=== PATIENT | male | born 1935 | race Caucasian/White ===

== ENCOUNTER → 2016-11-12 | Outpatient (CLI) | payer MEDICARE, BC ==
[~2016-11-12] MED LIST: DOBUTamine DRIP for NUC MED 500 MG in DEXTROSE/WATER 1 250ML.BAG IV ONE
--- NOTE | 2016-11-12 11:37 | ECHOS ---
Referral Reason:R07.9 chest pain R68.84 jaw pain MEASUREMENTS -------- HEIGHT: 175.3 cm WEIGHT: 104.3 kg BP: 141/62 FINDINGS -------- The patient received intravenous dobutamine beginning at 10 mcg/kg/min, increasing to 20 mcg/kg/min and 30 mcg/kg/min in 3 minute stages plus 0 mg atropine. Max Heart Rate: 119 % of Max Predicted Heart Rate: 85 Rest Heart Rate: 59 Rest BP: 141/62 Max BP: 216/58 Mets Achieved: N/A The test was stopped because the target heart rate was achieved. Sinus rhythm. In response to stress, the ECG showed no diagnostic ST-T wave changes (see exercise report for details). LV size, wall thickness and systolic function are normal, with an EF of 60%. At recovery dobutamine stress there was appropriate augmentation of systolic function of all segments with decrease in cavity size. CONCLUSIONS -------- 1. Sinus rhythm. 2. In response to stress, the ECG showed no diagnostic ST-T wave changes (see exercise report for details). 3. LV size, wall thickness and systolic function are normal, with an EF of 60%. 4. At recovery dobutamine stress there was appropriate augmentation of systolic function of all segments with decrease in cavity size. 5. No 2D echocardiographic evidence of inducible ischemia to achieved workload. ASSISTANT STORE MANAGER TRAINEE: Marcus Sanon RDCS
== END | disposition home or self-care (01) ==
LOC: RADNMMAIN 08:54
PROVIDERS: ATTEND Family Medicine
DX: R07.9 Chest pain, unspecified (principal); R68.84 Jaw pain; Z88.5 Allergy status to narcotic agent
CPT/HCPCS: 93017; 93350

== ENCOUNTER → 2018-06-24 | Outpatient (CLI) | payer MEDICARE, BC ==
--- NOTE | 2018-06-24 12:41 | CT ---
EXAMINATION TYPE: CT ankle RT wo con DATE OF EXAM: 06/24/2018 COMPARISON: None HISTORY: Right ankle pain. CT DLP: 249 mGycm Automated exposure control for dose reduction was used. TECHNIQUE: Contiguous axial CT slices were obtained of the right ankle without contrast. Three-D refo rmatted images were also provided performed at a separate workstation. FINDINGS: There is a surgical fixation plate along the fibula with heterotopic ossification through the syndesm osis bridging the distal tibia or fibula. Multiple well-corticated osseous fragments are seen distal to the medial malleolus sequela of prior injury. The alignment of the right ankle is maintained. Ther e is slight sclerosis of the talar dome and distal tibia. No acute fracture is seen. Degenerative oss eous perforation is seen of the talotibial joint and dorsal midfoot. Extensive atherosclerosis is pre sent of the vasculature of the right foot. Small Achilles and plantar heel spurs are present. Evaluat ion of the tendons and ligaments are limited on CT. IMPRESSION: 1. NO EVIDENCE OF ACUTE FRACTURE OR HARDWARE FRACTURE OF THE RIGHT FOOT. 2. OSSEOUS SYNOSTOSIS OF THE DISTAL TIBIA AND FIBULA FROM HETEROTOPIC OSSIFICATION THROUGH THE SYNDES MOSIS. 3. WELL-CORTICATED SMALL FRACTURE FRAGMENTS INFERIOR TO THE MEDIAL MALLEOLUS OSSICLE OR PRIOR TRAUMA AND SUGGEST DELTOID LIGAMENT INJURY. 4. MODERATE HINDFOOT AND MIDFOOT ARTHROPATHY, SMALL HEEL SPURS, AND EXTENSIVE PERIPHERAL ARTERIAL ATH EROSCLEROSIS.
== END ==
LOC: RADCTMAIN 11:36
PROVIDERS: ATTEND Orthopaedic Surgery
DX: Q78.8 Other specified osteochondrodysplasias (principal); M12.871 Other specific arthropathies, not elsewhere classified, right ankle and foot; M77.31 Calcaneal spur, right foot

== ENCOUNTER 2018-09-13 16:48 | Inpatient (IN) | payer MEDICARE, BC ==
[2018-09-13] MEDS ORDERED: SODIUM CHLORIDE 0.9% 500 ML 500 ML IV STA (18:25)
[2018-09-13 18:47] LABS: Anisocytosis Slight; Basophils % (A) 0 %; Eosinophils # (A) 0.1 k/uL (0-0.7); Eosinophils % (A) 2 %; HCT 32.3 % (39.0-53.0); HGB 10.4 gm/dL (13.0-17.5); Lymphocytes # (A) 0.7 k/uL (1.0-4.8); Lymphocytes % (A) 22 %; MCH 27.4 pg (25.0-35.0); MCHC 32.2 g/dL (31.0-37.0); MCV 85.2 fL (80.0-100.0); Mean Platelet Volume 8.2; Monocytes # (A) 0.3 k/uL (0-1.0); Monocytes % (A) 9 %; Neutrophils # (A) 1.9 k/uL (1.3-7.7); Neutrophils % (A) 64 %; Platelet Count 129 k/uL (150-450); RBC 3.79 m/uL (4.30-5.90); RDW 16.4 % (11.5-15.5)
[2018-09-13 18:49] LABS: Appearance,Urine Clear (Clear); Bilirubin,Urine Negative (Negative); Blood,Urine Negative (Negative); Color,Urine Yellow; Glucose,Urine (UA) Negative (Negative); Ketones,Urine Negative (Negative); Leukocyte Esterase,Urine Trace (Negative); Mucus,Urine Rare /hpf; Nitrite,Urine Negative (Negative); Protein,Urine 1+ (Negative); RBC,Urine 1 /hpf (0-5); Specific Gravity,Urine 1.025 (1.001-1.035); Squamous Epithelial Cell,Urine 1 /hpf (0-4); WBC,Urine 4 /hpf (0-5)
--- NOTE | 2018-09-13 18:49 | ED ---
Chest Pain HPI - General Chief Complaint: Chest Pain Stated Complaint: Shortness of Breath Time Seen by Provider: 09/13/18 18:00 Source: patient, family Mode of arrival: wheelchair Limitations: no limitations - History of Present Illness Initial Comments: 83-year-old male patient with past medical history significant for coronary artery disease, hypertension, diabetes mellitus presents to the emergency department today for evaluation of shortness of breath and near-syncope. The patient states that he has been increasingly short of breath over the last several weeks worsening today. Patient states that he did have an episode today where he felt extremely fatigued and nearly passed out. Patient denies any dizziness with this. Patient states he did have some mild discomfort to his chest but denies any pain". Patient denies any nausea or vomiting. Denies any abdominal pain. He does report an increase in indigestion type symptoms over the last couple of weeks as well. Patient did return from a trip to [place] on Wednesday. He did fly there and back. Denies any calf pain, tenderness, or swelling. Patient denies any recent rash, fever, chills, diarrhea, constipation, back pain, numbness, tingling, hematuria, dysuria, urinary urgency, urinary frequency, headache, visual changes, or any other complaints. - Related Data Home Medications Medication Instructions Recorded Confirmed Doxazosin [Cardura] 1 mg PO DAILY 07/27/15 09/13/18 Lovastatin 40 mg PO HS 07/27/15 09/13/18 traZODone HCL [traZODone] 300 mg PO HS PRN 07/27/15 09/13/18 Carvedilol [Coreg] 6.25 mg PO BID 09/13/18 09/13/18 Furosemide [Lasix] 20 mg PO DAILY 09/13/18 09/13/18 Gabapentin [Neurontin] 400 mg PO QID PRN 09/13/18 09/13/18 Glimepiride [Amaryl] 4 mg PO BID 09/13/18 09/13/18 Hydrocodone/Acetaminophen [[place] 1 tab PO Q4HR PRN 09/13/18 09/13/18 5-325] amLODIPine BESYLATE [Norvasc] 5 mg PO DAILY 09/13/18 09/13/18 Allergies Allergy/AdvReac Type Severity Reaction Status Date / Time meperidine HCl [From Demerol] Allergy Hallucinati Verified 09/13/18 18:35 ons Review of Systems ROS Statement: Those systems with pertinent positive or pertinent negative responses have been documented in the HPI. ROS Other: All systems not noted in ROS Statement are negative. EKG Findings - EKG Comments: EKG Findings:: EKG obtained at 1741 shows sinus bradycardia with a first-degree AV block. Ventricular rate is 59, NC interval 268, QRS duration 94, QTC 446, QTc 441. No evidence of ST elevation or depression. Past Medical History Past Medical History: Coronary Artery Disease (CAD), Chest Pain / Angina, Hypertension History of Any Multi-Drug Resistant Organisms: None Reported Past Surgical History: Back Surgery, Heart Catheterization With Stent Past Psychological History: No Psychological Hx Reported Smoking Status: Former smoker Past Alcohol Use History: None Reported Past Drug Use History: None Reported General Exam Limitations: no limitations General appearance: alert, in no apparent distress, other (This is a well- developed, well-nourished elderly male patient in no acute distress. Vital signs upon presentation are temperature 98.2F, pulse 87, respirations 20, blood pressure 144/66, pulse ox 98% on room air.) Eye exam: Present: normal appearance, PERRL, EOMI. Absent: scleral icterus, conjunctival injection, periorbital swelling ENT exam: Present: normal exam, normal oropharynx, mucous membranes moist Respiratory exam: Present: normal lung sounds bilaterally. Absent: respiratory distress, wheezes, rales, rhonchi, stridor Cardiovascular Exam: Present: regular rate, normal rhythm, normal heart sounds. Absent: systolic murmur, diastolic murmur, rubs, gallop, clicks GI/Abdominal exam: Present: soft, normal bowel sounds. Absent: distended, tenderness, guarding, rebound, rigid Neurological exam: Present: alert, oriented X3, CN II-XII intact Psychiatric exam: Present: normal affect, normal mood Skin exam: Present: warm, dry, intact, normal color. Absent: rash Course Vital Signs 09/13/18 09/13/18 09/13/18 17:31 18:30 19:00 Temperature 98.2 F Pulse Rate 87 57 L 60 Respiratory 20 18 18 Rate Blood Pressure 144/66 144/71 156/72 O2 Sat by Pulse 98 98 95 Oximetry 09/13/18 09/13/18 09/13/18 19:30 20:00 20:30 Temperature Pulse Rate 53 L 54 L 57 L Respiratory Rate Blood Pressure 143/68 145/74 154/73 O2 Sat by Pulse 97 98 Oximetry Chest Pain MDM - MDM RADIOLOGY:Two-view x-ray of the chest is obtained. Report was reviewed in its entirety. Impression by Dr. Paluo Meyers shows no acute process CT angiography of the chest was obtained. Report reviewed in its entirety. Impression by Dr. Paulo Meyers shows negative for pulmonary embolism or other acute thoracic process. Prominent left and right coronary arterial calcifications with mild cardiomegaly and parent chamber enlargement. Paraesophageal adenopathy pattern. Visualized subdiaphragmatic structures show findings suspicious for infiltrating liver neoplasm. Hepatomegaly. MDM: 83-year-old male patient presented to the emergency department today for evaluation of shortness of breath and near-syncope today. Physical examination reveals clear equal lung sounds. Abdomen soft and nontender. Vital signs are within normal ranges. Labs reviewed and did reveal elevated d-dimer 1.4. The patient did undergo CT angiography of the chest which showed no acute intrathoracic process however did show suspicious liver lesion. I did discuss all results and findings with the patient. He is instructed to follow-up with his primary care physician for further evaluation of this abnormal liver finding. He does have history of coronary artery disease, did recommend admission overnight for serial troponin and further evaluation by cardiology in the morning. He verbalizes understanding and agrees with this plan. Disposition Clinical Impression: Dyspnea, Near syncope Disposition: ADMITTED IP TO THIS [facility] Condition: Serious Decision to Admit Reason: Admit from EC Decision Date: 09/13/18 Decision Time: 22:13
[2018-09-13 19:02] LABS: Partial Thromboplastin Time 27.4 sec (22.0-30.0); Prothrombin Time 10.4 sec (9.0-12.0)
[2018-09-13 19:04] LABS: D-Dimer 1.41 mg/L FEU (<0.60)
[2018-09-13 19:11] LABS: Albumin 3.4 g/dL (3.5-5.0); Calcium 8.6 mg/dL (8.4-10.2); Potassium 4.5 mmol/L (3.5-5.1); Total Bilirubin 0.6 mg/dL (0.2-1.3); Total Protein 6.5 g/dL (6.3-8.2)
--- NOTE | 2018-09-13 20:14 | XR ---
EXAMINATION: XR chest 2V DATE AND TIME: 09/13/2018 6:57 PM CLINICAL INDICATION: PHH; Chest Pain TECHNIQUE: Departmental protocol COMPARISON: 07/27/2015 FINDINGS: The cardiac apex at opacity is redemonstrated. Visualized lungs otherwise appear to be clear and well expanded bilaterally. The pleural spaces are negative. The cardiac silhouette is mildly enlarged. The remainder of the mediastinal silhouette is unremarkabl e. The skeletal structures and soft tissues are negative for acute findings. IMPRESSION: NO ACUTE PROCESS.
--- NOTE | 2018-09-13 21:05 | CT ---
EXAMINATION TYPE: CT chest angio for PE with contrast and with 3-D reconstruction renderings DATE OF EXAM: 09/13/2018 COMPARISON: Abdominal CT images 06/06/2013 HISTORY: Shortness of breath. CT DLP: 597.6 mGycm Automated exposure control for dose reduction was used. CONTRAST: CT Chest for pulmonary embolism performed with with IV Contrast, patient injected with 93ml mL of Isovue 370. Three-D reconstructions FINDINGS: LUNGS, PLEURAL SPACES, AIRWAYS: The lungs are grossly clear, there is no concerning parenchymal mass or nodule identified. There is no pleural effusion or pneumothorax seen. The tracheobronchial tree is patent. MEDIASTINUM: There is satisfactory enhancement of the pulmonary artery and its branches, there is no CT evidence for pulmonary embolism. No acute aortic findings. There are prominent left and right heike nary calcifications with mild cardiomegaly and panchamber enlargement. No pericardial effusion. There are multifocal 1 cm short axis soft tissue paraesophageal located just right of the thoracic es ophagus in the subcarinal position. These are suspicious for adenopathy; no paraesophageal varices ar e also present. OTHER: There is a zone of ill-defined low attenuation throughout the posterior segment of the right hepatic lobe, both above and below the level of the jose hepatis. This measures 10 x 8 cm in axial c ross section and reaches a posterior subcapsular position. The finding was not seen at the time of th e noncontrast CT of 2013. Further characterization with alpha-fetoprotein level and also MRI Liver pr otocol is recommended. Mild caudate lobe prominence is noted. There is mild hepatomegaly with abdomin al varices noted. There is mild splenomegaly, without focal defects. IMPRESSION: CHEST: Negative for pulmonary embolism or other acute thoracic process. Prominent left and right coronary arterial calcifications with mild cardiomegaly and panchamber enlar gement. Paraesophageal adenopathy pattern. VISUALIZED SUBDIAPHRAGMATIC STRUCTURES: Findings suspicious for infiltrating liver neoplasm. Hepatosplenomegaly.
[2018-09-13] MEDS ORDERED: NALOXONE 0.4 MG/ML 1 ML VIAL IV PRN (22:10)
[2018-09-13] MEDS ORDERED: ONDANSETRON 4 MG/2 ML VIAL IVP PRN (22:10)
[2018-09-13] MEDS ORDERED: GABAPENTIN 400 MG CAP PO PRN (22:11)
[2018-09-13] MEDS ORDERED: traZODone HCL 100 MG TAB PO PRN (22:11)
[2018-09-13] MEDS ORDERED: HYDROcodone/APAP 5-325MG 1 EACH TAB PO PRN (22:11)
[2018-09-14 06:46] LABS: Glucose,Whole Blood 114 mg/dL (75-99)
--- NOTE | 2018-09-14 08:17 | P.CRDCN ---
History of Present Illness Consult date: 09/14/18 Chief complaint: Shortness of breath History of present illness: This is a pleasant 83-year-old gentleman with past medical history significant f or CAD and prior stenting with unknown details at this point, borderline diabetes, hypertension, and dyslipidemia, presented to the hospital complaining of increasing shortness of breath as well as near syncope. The patient stated that the shortness of breath started about 3 weeks ago. He describes only exertional dyspnea but even with minimal exertion. No orthopnea or PND. No lower extremities edema. No change in the weight. No symptoms of chest pain or chest discomfort. No dizziness or lightheadedness and no syncope. The cardiac enzymes were checked and came in to be unremarkable. The EKG showed sinus rhythm only. The d-dimer was abnormal and subsequently the CTA of the chest did not show any acute abnormalities like PE or acute thoracic process. There was possible newplasm in the liver was identified on the computed tomography scan. The rest of the blood work came in to be unremarkable. The patient stated that he follows with Dr. Pearl in the office on regular basis but he did not have any stress test within the last 6 months to a year. Past Medical History Past Medical History: Coronary Artery Disease (CAD), Chest Pain / Angina, Hypertension History of Any Multi-Drug Resistant Organisms: None Reported Past Surgical History: Back Surgery, Heart Catheterization With Stent Additional Past Surgical History / Comment(s): surgery for broken nose Past Anesthesia/Blood Transfusion Reactions: No Reported Reaction Date of Last Stent Placement:: 2008 Smoking Status: Former smoker - Past Family History Mother Family Medical History: Diabetes Mellitus Father Family Medical History: Myocardial Infarction ([place]) Brother(s) Family Medical History: Myocardial Infarction ([place]) Sister(s) Family Medical History: No Reported History Son(s) Family Medical History: No Reported History Daughter(s) Additional Family Medical History / Comment(s): open heart sugery as a toddler Medications and Allergies Home Medications Medication Instructions Recorded Confirmed Type Doxazosin [Cardura] 1 mg PO DAILY 07/27/15 09/14/18 History Lovastatin 40 mg PO HS 07/27/15 09/14/18 History traZODone HCL [traZODone] 300 mg PO HS PRN 07/27/15 09/14/18 History Carvedilol [Coreg] 6.25 mg PO BID 09/13/18 09/14/18 History Furosemide [Lasix] 20 mg PO DAILY 09/13/18 09/14/18 History Gabapentin [Neurontin] 400 mg PO QID PRN 09/13/18 09/14/18 History Glimepiride [Amaryl] 4 mg PO BID 09/13/18 09/14/18 History Hydrocodone/Acetaminophen [[place] 1 tab PO Q4HR PRN 09/13/18 09/14/18 History 5-325] amLODIPine BESYLATE [Norvasc] 5 mg PO DAILY 09/13/18 09/14/18 History Allergies Allergy/AdvReac Type Severity Reaction Status Date / Time meperidine HCl [From Demerol] Allergy Hallucinati Verified 09/14/18 00:57 ons Physical Exam Vitals: Vital Signs Temp Pulse Pulse Pulse Resp BP BP 09/14/18 07:25 97.5 F L 80 18 189/77 09/14/18 04:00 97.7 F 65 15 151/64 09/14/18 00:00 97.9 F 69 15 146/78 09/13/18 23:19 97 F L 62 18 136/63 09/13/18 23:00 133/63 09/13/18 22:30 60 144/66 09/13/18 22:00 59 L 184/89 09/13/18 21:30 157/84 09/13/18 21:00 157/71 09/13/18 20:30 57 L 154/73 09/13/18 20:00 54 L 145/74 09/13/18 19:30 53 L 143/68 09/13/18 19:00 60 18 156/72 09/13/18 18:30 57 L 18 144/71 09/13/18 17:31 98.2 F 87 20 144/66 Pulse Ox 09/14/18 07:25 97 09/14/18 04:00 97 09/14/18 00:00 97 09/13/18 23:19 97 09/13/18 23:00 96 09/13/18 22:30 96 09/13/18 22:00 98 09/13/18 21:30 09/13/18 21:00 97 09/13/18 20:30 98 09/13/18 20:00 97 09/13/18 19:30 09/13/18 19:00 95 09/13/18 18:30 98 09/13/18 17:31 98 Intake and Output 09/13/18 09/14/18 09/14/18 22:59 06:59 14:59 Other: Voiding Method Toilet # Voids 2 Weight 111.13 kg - Constitutional General appearance: no acute distress - Respiratory Respiratory: bilateral: CTA - Cardiovascular Rhythm: regular Heart sounds: normal: S1, S2 Abnormal Heart Sounds: systolic murmur Results 09/13/18 18:05 09/13/18 18:05 Cardiac Enzymes 09/13/18 09/13/18 09/13/18 Range/Units 18:05 18:05 23:42 AST 61 H (17-59) U/L Troponin I <0.012 <0.012 (0.000-0.034) ng/mL 09/14/18 Range/Units 06:00 AST (17-59) U/L Troponin I <0.012 (0.000-0.034) ng/mL Coagulation 09/13/18 Range/Units 18:05 PT 10.4 (9.0-12.0) sec APTT 27.4 (22.0-30.0) sec CBC 09/13/18 Range/Units 18:05 WBC 3.0 L (3.8-10.6) k/uL RBC 3.79 L (4.30-5.90) m/uL Hgb 10.4 L (13.0-17.5) gm/dL Hct 32.3 L (39.0-53.0) % Plt Count 129 L (150-450) k/uL Comprehensive Metabolic Panel 09/13/18 Range/Units 18:05 Sodium 138 (137-145) mmol/L Potassium 4.5 (3.5-5.1) mmol/L Chloride 107 (98-107) mmol/L Carbon Dioxide 25 (22-30) mmol/L BUN 19 (9-20) mg/dL Creatinine 0.98 (0.66-1.25) mg/dL Glucose 131 H (74-99) mg/dL Calcium 8.6 (8.4-10.2) mg/dL AST 61 H (17-59) U/L ALT 36 (21-72) U/L Alkaline Phosphatase 182 H (38-126) U/L Total Protein 6.5 (6.3-8.2) g/dL Albumin 3.4 L (3.5-5.0) g/dL Current Medications Generic Name Dose Route Start Last Admin Trade Name Freq PRN Reason Stop Dose Admin Hydrocodone Bitart/Acetaminophen 1 each 09/13/18 22:11 [place] 5-325 PO Q4HR PRN Pain Amlodipine Besylate 5 mg 09/14/18 09:00 Norvasc PO DAILY [facility] Atorvastatin Calcium 10 mg 09/14/18 21:00 Lipitor PO HS [facility] Carvedilol 6.25 mg 09/14/18 07:30 Coreg PO AC-BID [facility] Doxazosin Mesylate 1 mg 09/14/18 09:00 Cardura PO DAILY [facility] Furosemide 20 mg 09/14/18 09:00 Lasix PO DAILY [facility] Gabapentin 400 mg 09/13/18 22:11 Neurontin PO QID PRN Pain Glimepiride 4 mg 09/14/18 09:00 Amaryl PO BID [facility] Naloxone HCl 0.2 mg 09/13/18 22:10 Narcan IV Q2M PRN Opioid Reversal Ondansetron HCl 4 mg 09/13/18 22:10 Zofran IVP Q8HR PRN Nausea And Vomiting Trazodone HCl 300 mg 09/13/18 22:11 Desyrel PO HS PRN Insomnia Intake and Output 09/13/18 09/14/18 09/14/18 22:59 06:59 14:59 Other: Voiding Method Toilet # Voids 2 Weight 111.13 kg 09/13/18 18:05 09/13/18 18:05 Assessment and Plan Assessment: Assessment #1 shortness of breath, only exertional dyspnea #2 near syncope #3 CAD with prior stenting with unknown details #4 multiple comorbidities including diabetes, hypertension, dyslipidemia Plan #1 acute coronary event was ruled out. The serial enzymes came in to be unrem arkable. #2 PE was ruled out as well. The computed tomography scan of the chest did not show any evidence of PE #3 I am obtaining an echocardiogram was Doppler to assess the LV function and for any valvular abnormalities #3 I would advise further investigating the liver abnormalities finding on the computed tomography scan #4 further recommendation to follow that, possibly obtaining a stress test Thank you for allowing us participate in his care.
[2018-09-14] MEDS: FUROSEMIDE 20 MG TAB PO SCH (11:16)
[2018-09-14] MEDS: DOXAZOSIN 1 MG TAB PO SCH (11:16)
[2018-09-14] MEDS: CARVEDILOL 6.25 MG TAB PO SCH ×2 (11:16→17:34)
[2018-09-14] MEDS: amLODIPine 5 MG TAB PO SCH (11:16)
[2018-09-14] MEDS: GLIMEPIRIDE 4 MG TAB PO SCH ×2 (11:16→20:22)
[2018-09-14 11:57] LABS: Glucose,Whole Blood 131 mg/dL (75-99)
[2018-09-14 13:06] LABS: Blood Urea Nitrogen 15 mg/dL (9-20)
[2018-09-14] MEDS: IOPAMIDOL-300 CONTRAST 30 ML VIAL (ORAL USE) PO PRN ×2 (14:41→15:33)
--- NOTE | 2018-09-14 14:45 | ECHOF ---
Referral Reason:CP MEASUREMENTS -------- HEIGHT: 175.3 cm WEIGHT: 111.1 kg BP: 189/77 RVIDd: 3.5 cm (< 3.3) IVSd: 1.2 cm (0.6 - 1.1) LVIDd: 3.8 cm (3.9 - 5.3) LVPWd: 1.2 cm (0.6 - 1.1) IVSs: 1.5 cm LVIDs: 1.7 cm LVPWs: 1.5 cm Ao Diam: 2.8 cm (2.0 - 3.7) AV Cusp: 2.2 cm (1.5 - 2.6) LA Diam: 3.8 cm (2.7 - 3.8) MV EXCURSION: 17.701 mm (> 18.000) MV EF SLOPE: 148 mm/s (70 - 150) EPSS: 0.7 cm MV E Giovanni: 1.23 m/s MV DecT: 210 ms MV A Giovanni: 0.85 m/s MV E/A Ratio: 1.45 RAP: 5.00 mmHg RVSP: 33.76 mmHg FINDINGS -------- Sinus rhythm. This was a technically good study. The left ventricular size is normal. There is mild concentric left ventricular hypertrophy. Overa ll left ventricular systolic function is normal with, an EF between 55 - 60 %. The right ventricle is mildly enlarged. The left atrial size is normal. The right atrial size is normal. Interatrial and interventricular septum intact. Aortic valve is trileaflet and is mildly thickened. Mild mitral annular calcification present. Mild mitral regurgitation is present. Trace tricuspid regurgitation present. The right ventricular systolic pressure, as measured by Dopp ler, is 33.76mmHg. There is no pulmonic regurgitation present. The aortic root size is normal. IVC Not well visulized. There is no pericardial effusion. CONCLUSIONS -------- 1. Sinus rhythm. 2. This was a technically good study. 3. The left ventricular size is normal. 4. There is mild concentric left ventricular hypertrophy. 5. Overall left ventricular systolic function is normal with, an EF between 55 - 60 %. 6. The right ventricle is mildly enlarged. 7. The left atrial size is normal. 8. The right atrial size is normal. 9. Interatrial and interventricular septum intact. 10. Aortic valve is trileaflet and is mildly thickened. 11. Mild mitral annular calcification present. 12. Mild mitral regurgitation is present. 13. Trace tricuspid regurgitation present. 14. The right ventricular systolic pressure, as measured by Doppler, is 33.76mmHg. 15. There is no pulmonic regurgitation present. 16. The aortic root size is normal. 17. IVC Not well visulized. 18. There is no pericardial effusion. RESIDENTIAL TEAM LEADER: Sri Vega RDCS
[2018-09-14 16:49] LABS: Glucose,Whole Blood 150 mg/dL (75-99)
--- NOTE | 2018-09-14 18:15 | CT ---
EXAMINATION TYPE: CT abdomen pelvis w con DATE OF EXAM: 09/14/2018 COMPARISON: 06/06/2013 HISTORY: Upper Abdominal pain. CT DLP: 1972.5 mGycm Automated exposure control for dose reduction was used. TECHNIQUE: Helical acquisition of images was performed from the lung bases through the pelvis. CONTRAST: Performed with Oral Contrast and with IV Contrast, patient injected with 100 mL of Isovue 300. FINDINGS: There are small bilateral pleural effusions. Heart size is fairly normal. There is no pericardial eff usion. There is small hiatal hernia. There is a 7 x 12 cm area of decreased patchy attenuation in the posterior right lobe of the liver. T he remainder of the liver appears normal. Spleen appears normal. There is no evidence of pancreatic m ass. There is no adrenal mass. Kidneys show satisfactory contrast opacification. There is no hydronephrosi s. There is atherosclerotic vascular calcification. There is 6 cm cortical cyst lower pole left kidne y. There is no retroperitoneal adenopathy. There is right-sided bladder diverticulum that extends into small right inguinal hernia. There is no free fluid in the pelvis. There is no sign of a pelvic mass. There is small amount of fluid in the ri ght paracolic gutter. There is no mesenteric edema. There is no sign of a bowel obstruction. There is cholecystectomy noted. There are spondylotic changes in the lumbar spine.There is some destructive changes involving the L5 vertebral body. There is moderate L3-4 bony spinal stenosis due to facet arthropathy. IMPRESSION: THERE IS A LARGE PREDOMINANTLY LOW DENSITY LIVER LESION THAT IS A CHANGE COMPARED TO OLD CT SCAN AND SUSPICIOUS FOR PRIMARY LIVER TUMOR. DESTRUCTIVE CHANGES IN THE L5 VERTEBRA ARE SUSPICIOUS FOR TUMOR AND PATHOLOGIC FRACTURE.. SMALL PLEURAL EFFUSIONS ARE NEW.
--- NOTE | 2018-09-14 18:39 | HP ---
HISTORY AND PHYSICAL CHIEF COMPLAINT: Shortness of breath and near-syncope. HISTORY OF PRESENT ILLNESS: This is another admission for this 83-year-old white male. He has a history of hypertension, CAD, COPD, peripheral neuropathy, and recent problems with back pain and osteolytic lesion in the distal dorsal and proximal LS spine. He has been having more and more shortness of breath at home and had an episode where he nearly passed out. He came to emergency room. He has had no chest pain, hemoptysis, orthopnea, PND, fever, chills, palpitations, etc. Enzymes in the emergency room were normal and he had a CTA which failed to demonstrate any evidence of pulmonary embolism or emboli. There are incidental findings that suggest that there may be an hepatic mass or masses. REVIEW OF SYSTEMS: He has had no headaches, neurologic deficits, change in vision or hearing, cough, hemoptysis, sputum production, pleurisy, angina, orthopnea, palpitations, abdominal pain, nausea, vomiting, hematemesis, melena, hematochezia, jaundice, renal failure, hematuria, frequency, urgency and dysuria, etc. Past medical history, family history, personal and social histories reveal that he is ALLERGIC TO DEMEROL. MEDICATIONS: Amlodipine 5 mg once a day, carvedilol 6.25 mg twice a day, furosemide 20 mg once a day, lovastatin 40 mg once a day, gabapentin 400 mg 4 times a day, doxazosin 1 mg once a day, lisinopril 40 mg once a day, Vicodin p.r.n., Neurontin 400 mg 4 times a day, trazodone 150 mg 1 or 2 at bedtime, Xanax 0.25 once a day p.r.n., glimepiride 4 mg twice a day, and Ecotrin 81 mg a day. The remainder of his history is unremarkable. He used to smoke but he does not any longer. PHYSICAL EXAMINATION: VITAL SIGNS: BP is 167/68 with a pulse of 70 and regular, respirations 16 and he is afebrile. GENERAL: He appeared to be well developed, well nourished, no acute distress. Skin: Color is normal. Skin is warm, dry. Lymph nodes not enlarged. Head, ears, eyes, nose, mouth, and throat were normal. Neck veins not distended. Thyroid not enlarged. Chest is clear. Breath sounds are somewhat diminished. Cardiac exam demonstrated normal sinus rhythm and no murmurs, or extra sounds. Abdomen is protuberant. There is no definite evidence of any visceromegaly or masses. Bowel sounds are present. Extremities: Normal. Neurologically: He was intact. He is admitted to the hospital with diagnoses of: IMPRESSION: 1. Acute onset of dyspnea with near-syncope. 2. Rule out congestive heart failure. 3. Rule out coronary artery disease. 4. Rule out arrhythmia. 5. Rule out pulmonary disease. 6. Type 2 NIDDM. 7. Chronic obstructive pulmonary disease. 8. History of hypertension. 9. History of coronary artery disease. 10.Elevated AST with possible liver mass. 11.Rule out neoplasm of the liver. 12.Back pain with lytic lesion in the lower dorsal and upper LS spine. PLAN: 1. Bed rest. 2. IV fluids. 3. Cardiology consult. 4. Echocardiogram. 5. Possible oncology evaluation. MMODL / IJN: [id number] /
--- NOTE | 2018-09-14 18:49 | PN ---
PROGRESS NOTE CHIEF COMPLAINT: Acute onset of dyspnea and near-syncope. HISTORY OF PRESENT ILLNESS: This gentleman has been doing fairly well. He is not short of breath today, but he is at rest. He has no chest pain. He has had no palpitations. He has had no syncope. PHYSICAL EXAMINATION: Chest is clear. The cardiac exam is normal. Abdomen is soft, nontender. His abdomen is still quite protuberant. IMPRESSION: 1. Shortness of breath, etiology unknown. 2. Near-syncope. 3. Lytic lesion in distal dorsal spine. 4. Possible hepatic lesions. PLAN: 1. Await further cardiac evaluation. 2. Echocardiogram. 3. Continue to look into lytic lesions in the distal dorsal spine and possible liver mass. MMODL / IJN: [id number] /
[2018-09-14 20:09] LABS: Glucose,Whole Blood 192 mg/dL (75-99)
[2018-09-14] MEDS: ATORVASTATIN 10 MG TAB PO SCH (20:22)
[2018-09-15] MEDS: LISINOPRIL 20 MG TAB PO SCH ×2 (04:00→11:52)
[2018-09-15 06:50] LABS: Glucose,Whole Blood 147 mg/dL (75-99)
[2018-09-15] MEDS: GLIMEPIRIDE 4 MG TAB PO SCH ×2 (08:51→21:55)
[2018-09-15] MEDS: amLODIPine 5 MG TAB PO SCH (08:51)
[2018-09-15] MEDS: FUROSEMIDE 20 MG TAB PO SCH (08:51)
[2018-09-15] MEDS: DOXAZOSIN 1 MG TAB PO SCH (08:51)
[2018-09-15] MEDS: CARVEDILOL 6.25 MG TAB PO SCH ×2 (11:52→17:43)
[2018-09-15 12:00] LABS: Glucose,Whole Blood 162 mg/dL (75-99)
--- NOTE | 2018-09-15 12:16 | P.PN ---
Progress Note - Text Progress Note Date: 09/15/18 This is a pleasant 83-year-old gentleman with past medical history significant for CAD and prior stenting with unknown details at this point, borderline diabetes, hypertension, and dyslipidemia, presented to the hospital complaining of increasing shortness of breath as well as near syncope. The patient stated that the shortness of breath started about 3 weeks ago. He describes only exertional dyspnea but even with minimal exertion. No orthopnea or PND. No lower extremities edema. No change in the weight. No symptoms of chest pain or chest discomfort. No dizziness or lightheadedness and no syncope. The cardiac enzymes were checked and came in to be unremarkable. The EKG showed sinus rhythm only. The d-dimer was abnormal and subsequently the CTA of the chest did not show any acute abnormalities like PE or acute thoracic process. The patient underwent a computed tomography scan of the abdomen and pelvis and that revealed possible primary liver tumor. Currently he is in process of having an MRI later on today. At this point, I would advise a conservative medical approach. I'm going to increase the dose of Norvasc because pressure continues to be elevated. The patient denies any chest pain or chest discomfort.
[2018-09-15 16:17] LABS: Prothrombin Time 10.4 sec (9.0-12.0)
[2018-09-15 16:22] LABS: Mean Platelet Volume 7.9; Platelet Count 131 k/uL (150-450)
[2018-09-15 17:06] LABS: Glucose,Whole Blood 148 mg/dL (75-99)
--- NOTE | 2018-09-15 18:28 | P.CONS ---
History of Present Illness - Reason for Consult Consult date: 09/15/18 liver mass, lytic bone lesion Requesting physician: Aguilar Alfredo - Chief Complaint SOB, KYLE - History of Present Illness Mr. Bolaños is a very pleasant 83-year-old male who is admitted currently because he was experiencing progressive shortness of breath. States symptoms started in the last 24 hours, persisted, nothing made better, activity made breathing harder. Had an episode of vomiting and diarrhea about 2 days ago, lasted a few days but then resolved. Otherwise he denies fevers, chills, nausea, vomiting, states he has a decent appetite, no chest pain, bleeding, swelling, unintentional weight loss, new or unusual pain, He is active and states he has been in his usual state of health prior to the last 2 weeks. Review of Systems 14 point ROS is negative except as stated in HPI Past Medical History Past Medical History: Coronary Artery Disease (CAD), Chest Pain / Angina, Hypertension History of Any Multi-Drug Resistant Organisms: None Reported Past Surgical History: Back Surgery, Heart Catheterization With Stent Additional Past Surgical History / Comment(s): surgery for broken nose Past Anesthesia/Blood Transfusion Reactions: No Reported Reaction Date of Last Stent Placement:: 2008 Past Psychological History: No Psychological Hx Reported Smoking Status: Former smoker Additional Past Alcohol Use History / Comment(s): Pt states drinking years ago Past Drug Use History: None Reported - Past Family History Mother Family Medical History: Diabetes Mellitus Father Family Medical History: Myocardial Infarction ([place]) Brother(s) Family Medical History: Myocardial Infarction ([place]) Sister(s) Family Medical History: No Reported History Son(s) Family Medical History: No Reported History Daughter(s) Additional Family Medical History / Comment(s): open heart sugery as a toddler Medications and Allergies Home Medications Medication Instructions Recorded Confirmed Type Doxazosin [Cardura] 1 mg PO DAILY 07/27/15 09/14/18 History Lovastatin 40 mg PO HS 07/27/15 09/14/18 History traZODone HCL [traZODone] 300 mg PO HS PRN 07/27/15 09/14/18 History Carvedilol [Coreg] 6.25 mg PO BID 09/13/18 09/14/18 History Furosemide [Lasix] 20 mg PO DAILY 09/13/18 09/14/18 History Gabapentin [Neurontin] 400 mg PO QID PRN 09/13/18 09/14/18 History Glimepiride [Amaryl] 4 mg PO BID 09/13/18 09/14/18 History Hydrocodone/Acetaminophen [[place] 1 tab PO Q4HR PRN 09/13/18 09/14/18 History 5-325] amLODIPine BESYLATE [Norvasc] 5 mg PO DAILY 09/13/18 09/14/18 History Lisinopril 40 mg PO DAILY 09/15/18 09/15/18 History Allergies Allergy/AdvReac Type Severity Reaction Status Date / Time meperidine HCl [From Demerol] Allergy Hallucinati Verified 09/14/18 00:57 ons Physical Exam Vitals: Vital Signs Temp Pulse Resp BP Pulse Ox 09/15/18 16:00 97.8 F 72 18 146/76 09/15/18 12:00 98.6 F 73 16 181/78 97 09/15/18 08:00 97.9 F 73 18 168/65 97 09/15/18 05:31 149/59 09/15/18 03:53 98.4 F 76 18 194/76 96 09/14/18 23:48 16 09/14/18 23:23 98.4 F 69 16 188/76 95 09/14/18 20:00 16 09/14/18 19:45 97.8 F 54 L 16 148/65 99 Intake and Output 09/15/18 09/15/18 09/15/18 06:59 14:59 22:59 Other: Voiding Method Toilet Toilet # Voids 1 - Constitutional General appearance: cooperative, no acute distress, obese - EENT Eyes: anicteric sclerae, EOMI, normal appearance ENT: hearing grossly normal, normal oropharynx - Neck Neck: no lymphadenopathy - Respiratory Respiratory: bilateral: CTA - Cardiovascular Rhythm: regular Heart sounds: normal: S1, S2 Abnormal Heart Sounds: no systolic murmur, no diastolic murmur, no rub, no S3 Gallop, no S4 Gallop, no click, no other leg Peripheral Edema: bilateral: None - Gastrointestinal Liver percussed about 3 finger breadths below the costal margin, fluid wave is positive, patient has prominent vasculature on the abdomen General gastrointestinal: distended, hepatomegaly, normal bowel sounds, soft - Integumentary Integumentary: normal - Neurologic Neurologic: CNII-XII intact - Musculoskeletal Musculoskeletal: strength equal bilaterally - Psychiatric Psychiatric: A&O x's 3, appropriate affect, intact judgment & insight Results CBC & Chem 7: 09/15/18 15:50 09/14/18 06:00 Labs: Abnormal Lab Results - Last 24 Hours (Table) 09/14/18 09/15/18 09/15/18 Range/Units 20:03 06:45 11:52 Plt Count (150-450) k/uL POC Glucose (mg/dL) 192 H 147 H 162 H (75-99) mg/dL 09/15/18 09/15/18 Range/Units 15:50 17:05 Plt Count 131 L (150-450) k/uL POC Glucose (mg/dL) 148 H (75-99) mg/dL CT scan - abdomen: report reviewed CT scan - chest: report reviewed CT scan - pelvis: report reviewed Assessment and Plan (1) Liver mass Narrative/Plan: Case was discussed with interventional radiology nurse. There is a plan to biopsy the liver mass tomorrow morning. No aspirin, NSAIDs, anticoagulation prior to procedure. Current Visit: Yes Status: Acute Priority: High Code(s): R16.0 - HEPATOMEG HARIKA, NOT ELSEWHERE CLASSIFIED SNOMED Code(s): 214098886 (2) Portal vein thrombosis Narrative/Plan: Patient was too large for the MRI machine, patient is scheduled for an ultrasound in the a.m. to evaluate Current Visit: Yes Status: Suspected Priority: Medium Code(s): I81 - PORTAL VEIN THROMBOSIS SNOMED Code(s): 12322101 (3) Pancytopenia Narrative/Plan: None of his CBC is requiring acute intervention, pancytopenia workup ordered. Current Visit: Yes Status: Acute Priority: Medium Code(s): D61.818 - OTHER PANCYTOPENIA SNOMED Code(s): 505681951
--- NOTE | 2018-09-15 20:42 | PN ---
PROGRESS NOTE CHIEF COMPLAINT: Syncope, back pain and possible liver mass. HISTORY OF PRESENT ILLNESS: This gentleman is doing fairly well. He is anxious to be discharged. He was explained that there is a mass appearing in the liver. He was encouraged to stay in the hospital to see Oncology and possibly undergo an FNA. He is not having any significant abdominal pain. PHYSICAL EXAM: Chest is clear. The cardiac exam is normal. The abdomen is protuberant and there are no definite masses or visceromegaly. IMPRESSION: 1. Shortness of breath. 2. Near-syncope. 3. Liver mass. 4. Coronary artery disease. 5. Chronic obstructive pulmonary disease. PLAN: 1. Consult with interventional Radiology for possible FNA. 2. Consult Oncology. 3. Radiology feels he may have portal vein thrombosis and they are requesting an MRI which has been ordered. MMODL / IJN: [id number] /
[2018-09-15 20:53] LABS: Glucose,Whole Blood 130 mg/dL (75-99)
[2018-09-15] MEDS: ATORVASTATIN 10 MG TAB PO SCH (21:55)
[2018-09-16 05:19] VITALS: PULSE 65
[2018-09-16 07:12] LABS: Glucose,Whole Blood 116 mg/dL (75-99)
[2018-09-16] MEDS: DOXAZOSIN 1 MG TAB PO SCH (08:54)
[2018-09-16] MEDS: GLIMEPIRIDE 4 MG TAB PO SCH (08:54)
[2018-09-16] MEDS: CARVEDILOL 6.25 MG TAB PO SCH (08:54)
[2018-09-16] MEDS: LISINOPRIL 20 MG TAB PO SCH (08:54)
[2018-09-16] MEDS: FUROSEMIDE 20 MG TAB PO SCH (08:55)
[2018-09-16] MEDS ORDERED: amLODIPine 10 MG TAB PO SCH (09:00)
--- NOTE | 2018-09-16 09:01 | P.PN ---
Progress Note - Text Progress Note Date: 09/16/18 This is a pleasant 83-year-old gentleman with past medical history significant for CAD and prior stenting with unknown details at this point, borderline diabetes, hypertension, and dyslipidemia, presented to the hospital complaining of increasing shortness of breath as well as near syncope. The patient stated that the shortness of breath started about 3 weeks ago. He describes only exertional dyspnea but even with minimal exertion. No orthopnea or PND. No lower extremities edema. No change in the weight. No symptoms of chest pain or chest discomfort. No dizziness or lightheadedness and no syncope. The cardiac enzymes were checked and came in to be unremarkable. The EKG showed sinus rhythm only. The d-dimer was abnormal and subsequently the CTA of the chest did not show any acute abnormalities like PE or acute thoracic process. The patient underwent a computed tomography scan of the abdomen and pelvis and that revealed possible primary liver tumor. Hematology oncology service was consulted and the plan is to pursue with a liver biopsy but the patient was on aspirin and because of that biopsy was not done. I did see the patient today, 09/16/2018, he denies any chest pain or chest discomfort and denies any shortness of breath at this point but he has been not very active. Hemodynamically he is stable. From a cardiovascular standpoint of view, the patient can be discharged home.
--- NOTE | 2018-09-16 09:03 | US ---
EXAMINATION TYPE: US portal vein DATE OF EXAM: 09/16/2018 COMPARISON: CT abdomen and pelvis dated 09/14/2018 CLINICAL HISTORY: portal vein thrombosis. CT showed thrombus. GB removed January 2018- gangrene. [employer] EXAM[employer] MACHINE O. Extremely limited exam due to patient body habitus EXAM MEASUREMENTS: Liver Length: 18.2 Right Kidney: 11.3 x 5.7 x 5.4 ANATOMY: Pancreas: Tail not visualized. Appears edematous in appearance. Body- 2.4 cm Liver: Appears enlarged in size. Heterogenous. Increase in attenuation-- Suboptimal posterior visua lization making it difficult to determine presence or absence of lesions. The known largest greater t godinez 13 cm mass is suboptimally visualized however multiple other smaller masses are seen with the sec ond largest in the anterior right hepatic lobe measuring 3.7 x 3.3 x 2.9 cm Color flow patency within the portal vein: No. Trickle flow seen in main portal vein. Partial f low seen in left portal vein. Right portal vein not visualized. Gallbladder: Surgically removed Evidence for sonographic Renteria's sign: neg CBD: Obscured by overlying bowel gas Right Kidney: Cortical region appears lobular in appearance. Prominent area noted in lower pole = 2 .0 x 1.8 x 1.7 cm Ascites noted? no IMPRESSION: 1. 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 2. The large right hepatic mass is poorly visualized sonographically and better seen on the prior CT dated 09/14/2018. This measures up to 13.6 cm on that examination. Multiple additional hepatic masses a re seen in the right lower lobe with the second largest measuring 3.7 cm. Underlying hepatocellular d isease is seen with heterogenous hepatic echotexture and nodular contour the liver. Given the large m ass and portal vein thrombosis findings are most compatible with tumor thrombus rather than bland thr ombus. 3. Pancreas appears bulky and edematous and could relate to reactive change or pancreatitis. Correlat e with serum amylase and lipase. 4. There appears to be a right renal lesion measuring 2 cm on today's examination however this is fav ored to represent simply artifact as this is not seen on the prior CT of 09/14/2018. 5. Suboptimal exam with obscuration of the pancreatic tail and common bile duct by overlying bowel ga s.
[2018-09-16 11:46] LABS: Glucose,Whole Blood 182 mg/dL (75-99)
[2018-09-16 12:14] VITALS: BP 139/64; RESP 20; TEMP 98
--- NOTE | 2018-09-16 15:04 | P.PN ---
Subjective Progress Note Date: 09/16/18 Principal diagnosis: liver mass, ? portal vein thrombosis In f/u pt is feelng well, no fever, nausea, pain, appetite is good, no abd pain, cramping, mild distension, ambulatory, no new or unusual pain, diarrhea, constipation or bleeding Objective - Vital Signs Vital signs: Vital Signs Temp 98 F 09/16/18 12:13 Pulse 65 09/16/18 12:13 Resp 20 09/16/18 12:13 BP 139/64 09/16/18 12:13 Pulse Ox 97 09/16/18 12:13 Intake & Output 09/15/18 09/16/18 09/16/18 18:59 06:59 18:59 Intake Total 590 Balance 590 Intake: Oral 590 Other: Voiding Method Toilet Toilet # Voids 1 2 - Exam WD, obese male, laying in bed, A&OX4, NAD, skin warm and dry, respirations even and unlabored. - Labs CBC & Chem 7: 09/15/18 15:50 09/14/18 06:00 Labs: Abnormal Lab Results - Last 24 Hours (Table) 09/15/18 09/15/18 09/15/18 Range/Units 15:50 17:05 20:51 Plt Count 131 L (150-450) k/uL POC Glucose (mg/dL) 148 H 130 H (75-99) mg/dL 09/16/18 09/16/18 Range/Units 07:10 11:40 Plt Count (150-450) k/uL POC Glucose (mg/dL) 116 H 182 H (75-99) mg/dL Assessment and Plan (1) Liver mass Narrative/Plan: Discussed with IR. Pt is to hold aspirin (we reviewed holding ALL antiplatelet/anticoag drugs). Plan is for image guided liver biopys on the -order sent. Follow up with Dr. Romero on the . Pt aware of plan Current Visit: Yes Status: Acute Priority: High Code(s): R16.0 - HEPATOMEGALY, NOT ELSEWHERE CLASSIFIED SNOMED Code(s): 619690517 (2) Portal vein thrombosis Narrative/Plan: Reviewed US report (pt too large for MRI). US report suggestive of a tumor thrombosis. Dr. Romero reviewed report, no anticoagulation ordered. Discuss with patient Current Visit: Yes Status: Suspected Priority: Medium Code(s): I81 - PORTAL VEIN THROMBOSIS SNOMED Code(s): 80569469 (3) Pancytopenia Narrative/Plan: None of his CBC is requiring acute intervention, pancytopenia workup ordered/pending. Current Visit: Yes Status: Acute Priority: Medium Code(s): D61.818 - OTHER PANCYTOPENIA SNOMED Code(s): 072945081
[2018-09-16 16:10] LABS: Iron Saturation 9.91 (15.00-50.00); Rheumatoid Factor 7 IU/mL (0-15)
--- NOTE | 2018-09-16 22:18 | DS ---
DISCHARGE SUMMARY CHIEF COMPLAINT: Shortness of breath and near-syncope. HISTORY OF PRESENT ILLNESS AND PHYSICAL EXAM: Details of this man's history and physical can be found in the initial workup. COURSE IN HOSPITAL: After admission, he was placed on bedrest, started on intravenous fluids and started on workup. Part of the evaluation suggested that he had a liver mass. There is no obvious etiology for his syncope nor shortness of breath. He was requested that he undergo an FNA of the liver, but radiology learned that he probably had a portal vein thrombosis. They wanted to have that addressed before a biopsy was done. It was also suggested that he have an MRI of the abdomen, but he did not fit into the machine. At that point, it was felt that he could be discharged. He will follow up in a few days in the office and will arrange for outpatient open MRI of the abdomen and set him up for a biopsy of the liver mass. FINAL DIAGNOSES: 1. Shortness of breath. 2. Chronic obstructive pulmonary disease. 3. Near-syncope. 4. Hepatic mass. 5. Possible portal vein thrombosis. 6. Lytic lesion in the dorsal spine. OPERATIONS: None. CONSULTATIONS: Cardiology, Oncology and Interventional Radiology. He is improved. MMODL / IJN: [id number] /
--- NOTE | 2018-09-18 07:09 | DS ---
DISCHARGE SUMMARY CHIEF COMPLAINT: Shortness of breath, and weakness. HISTORY OF PRESENT ILLNESS AND PHYSICAL EXAM: Details of this man's history and physical can be found in the initial workup. LABORATORY STUDIES: While he was in the hospital, he had laboratory studies, details of which can be found in the laboratory section of his chart. COURSE IN HOSPITAL: After admission, he was placed on bedrest, started on intravenous fluids and studied for the etiology of his syncope and shortness of breath. He was found to have a potential lesion in the liver and this was to be biopsied, Radiology identified that he may also have a hepatic vein thrombosis. An MRI was to be done, but he was too big for the machine. Determination was made that he would go home and then have the MRI done in an open unit after discharge and then an FNA of the liver mass will be also obtained. FINAL DIAGNOSES: 1. Syncope. 2. Shortness of breath. 3. Chronic obstructive pulmonary disease. 4. Hepatic mass. 5. History of coronary artery disease. 6. Portal vein thrombosis. 7. History of hypertension. OPERATIONS: None. CONSULTATIONS: Interventional Radiology and Oncology. MMODL / IJN: [id number] /
[2018-09-19 14:03] LABS: Albumin 3.13 g/dL (3.80-4.90)
== END 2018-09-16 17:15 | disposition home or self-care (01) | DRG 312 ==
LOC: EC 16:48 → 1SOBS 21:27 → OBSVTOIN 09-15 08:43 → 3NMEDONC 09-15 15:37
PROVIDERS: ADMIT Family Medicine; ATTEND Family Medicine
DX: R55 Syncope and collapse (principal); I81 Portal vein thrombosis; D61.818 Other pancytopenia; J44.9 Chronic obstructive pulmonary disease, unspecified; E11.42 Type 2 diabetes mellitus with diabetic polyneuropathy; R06.02 Shortness of breath; E78.5 Hyperlipidemia, unspecified; I10 Essential (primary) hypertension; I25.10 Atherosclerotic heart disease of native coronary artery without angina pectoris; K76.9 Liver disease, unspecified; M89.9 Disorder of bone, unspecified; R79.89 Other specified abnormal findings of blood chemistry; R74.8 Abnormal levels of other serum enzymes; R01.1 Cardiac murmur, unspecified; Z95.5 Presence of coronary angioplasty implant and graft; Z87.891 Personal history of nicotine dependence; Z79.84 Long term (current) use of oral hypoglycemic drugs; Z79.899 Other long term (current) drug therapy; Z88.8 Allergy status to other drugs, medicaments and biological substances; Z82.49 Family history of ischemic heart disease and other diseases of the circulatory system; Z83.3 Family history of diabetes mellitus
CPT/HCPCS: 36415; 71046; 71275; 74177; 80053; 81001; 82565; 82607; 82728; 82747; 83540; 83550; 83735; 83880; 83883; 84165; 84484; 84520; 85025; 85049; 85379; 85610; 85730; 86038; 86334; 86431; 93005; 93306; 93975; 93976; 96360; 99285

== ENCOUNTER 2018-09-21 09:01 | Day surgery (SDC) | payer MEDICARE, BC ==
[2018-09-21 09:13] VITALS: TEMP 98.5
[2018-09-21 09:42] LABS: INR 1.1 (<1.2); Prothrombin Time 11.2 sec (9.0-12.0)
[2018-09-21 09:47] LABS: Mean Platelet Volume 8.6; Platelet Count 106 k/uL (150-450)
[2018-09-21] MEDS ORDERED: HYDROmorphone 0.5 MG/0.5 ML SYRINGE IVP STA (10:34)
--- NOTE | 2018-09-21 11:36 | CT ---
EXAMINATION TYPE: CT biopsy liver DATE OF EXAM: 09/21/2018 COMPARISON: NONE HISTORY: Right liver mass CT DLP: 2041mGycm The procedure was explained to the patient. The risks, complications, benefits, and alternatives wer e discussed and any questions were answered. Informed consent was obtained. Patient was placed supi ne on the CT table and prepped and draped in the usual sterile fashion. All elements of maximal barrier and sterile technique utilized. Utilizing CT guidance, an 18 gauge core biopsy needle access into the right lobe of the liver was ac hieved and a single 18 gauge core sample was obtained. The patient was stable throughout the procedu re and remained stable upon discharge. IMPRESSION: 1. Successful 18 gauge core biopsy of the liver.
[2018-09-21 14:25] VITALS: BP 178/73; PULSE 56; RESP 18
== END 2018-09-21 15:00 | disposition home or self-care (01) ==
LOC: RADPROMAIN 09:01
PROVIDERS: ATTEND Internal Medicine Hematology & Oncology
DX: C22.0 Liver cell carcinoma (principal); D49.2 Neoplasm of unspecified behavior of bone, soft tissue, and skin
CPT/HCPCS: 85049; 85610; 88313; 88342; 88307; 88341; 47000; 77012; J1170; Q9967

== ENCOUNTER → 2018-10-08 | Outpatient (CLI) | payer MEDICARE, BC ==
--- NOTE | 2018-10-11 18:35 | PE ---
Nuclear medicine PET/CT HISTORY: Liver cancer Patient received 8.9 mCi F-18 FDG intravenously in delayed scanning was performed from skull base to the mid thighs. Localization and attenuation correction CT scan was performed. Correlation CT abdomen pelvis 09/14/2018 Neck and chest: No suspicious hypermetabolic uptake is present. There is no cervical, supraclavicular , axillary, hilar, or mediastinal adenopathy. Coronary artery calcifications are dense. No evident rocky ng mass, no pleural or pericardial effusion. There are changes of probable gynecomastia. The heart is enlarged. ABDOMEN: Large area of low-attenuation is present within the liver with mild increased hypermetabolic uptake, lesion may be increased in size from approximately 13 to 14 cm 2 greater than 15 cm.. Liver and spleen are enlarged. Patient is post cholecystectomy. No retroperitoneal adenopathy. Largest low dense focus in an exophytic location at the lower pole the left kidney is present compatible with hep atic cyst measuring 6.6 cm. Prostate shows associated calcification. Bones show destructive lesion at L5. There is similar appearance to prior exam. Spondylolysis present at the lumbosacral junction. There are facet arthropathy changes, degenerative disc changes. IMPRESSION: Findings compatible with patient's history of liver carcinoma. Destructive lesion present within the L5 vertebral body may represent metastasis.
== END | disposition home or self-care (01) ==
LOC: RADPETMAIN 11:18
PROVIDERS: ATTEND Internal Medicine Hematology & Oncology
DX: C22.7 Other specified carcinomas of liver (principal); G95.89 Other specified diseases of spinal cord
CPT/HCPCS: 78815; A9552

== ENCOUNTER → 2018-11-23 | Outpatient (CLI) | payer MEDICARE, BC ==
--- NOTE | 2018-11-23 13:24 | MR ---
EXAMINATION TYPE: MR lumbar spine wo/w con DATE OF EXAM: 11/23/2018 COMPARISON: PET/CT dated 10/08/2018 and MRI of the lumbar spine dated 07/08/2018 HISTORY: Low back pain TECHNIQUE: Multiplanar, multisequence images of the lumbar spine were acquired utilizing 10 mL intravenous Gadav ist gadolinium contrast. FINDINGS: The previously seen pathologic compression deformity of L5 has progressed in degree of col lapse with vertebral body collapse of approximately 60% at this time is a posterior the prior of 30%. There is abnormal bone marrow signal within this vertebral body with bone marrow replacement and enh ancement. There is also bone marrow edema throughout indicating acute on chronic component of the pat hologic compression deformity. There is retropulsion of the posterior margin of the vertebral body ap proximately 6 mm into the spinal canal creating moderate spinal canal stenosis. Although the remainin g bone marrow signal and lumbar spine is patchy noted focal suspicious mass is seen. The remainder of the lumbar spine vertebral body heights and alignment are maintained. Again there is a partially visualized T1 hypointense and T2 hyperintense probable left renal cyst michelle t could be confirmed with ultrasound. This measures up to 6.4 cm. L1-L2: Disc desiccation is now seen with no focal herniation, spinal canal stenosis nor neural forami nal narrowing. L2-L3: There is a small broad-based disc bulge and facet arthropathy resulting in minimal bilateral n eural foraminal narrowing. No spinal canal stenosis. L3-L4: There is ligamentum flavum buckling and facet arthropathy that creates severe spinal canal cristy nosis in combination with posterior projecting osteophytes and broad-based disc bulge. This is most a ppreciated on axial T2 nonfat sat image 16. There is also moderate to severe bilateral neural foramin al narrowing with the disc fragment abutting the exiting nerve roots. L4-L5: Again there is a right eccentric broad-based disc bulge and facet arthropathy with ligamentum flavum buckling creating mild to moderate bilateral neural foraminal narrowing without spinal canal s tenosis. L5-S1: Pathologic compression deformity with retropulsion creating moderate spinal canal stenosis as detailed above. Additionally there is postsurgical change at this level with laminectomy and spinous process resection. There is enhancing epidural fibrosis seen centrally just above the disc space and nonenhancing fibrosis creating severe stenosis at the disc space. IMPRESSION: 1. Progressive collapse of the L5 nonpathologic vertebral body compression deformity with bone marrow edema indicating acute on chronic pathologic compression deformity. 2. Severe spinal canal stenosis is redemonstrated at L3-L4 secondary to ligamentum flavum buckling an d facet arthropathy as well as a broad-based disc bulge. Again this creates moderate to severe bilate ral foraminal narrowing with a disc fragment abutting the exiting L3 nerve roots bilaterally. 3. Enhancing focus epidural fibrosis at L5-S1 just above the disc space and nonenhancing fibrosis con tributing to severe spinal canal stenosis at L5-S1 disc space level. 4. No new abnormal bone marrow enhancement to suggest other sites of osseous metastasis. 5. Degenerative changes of the lumbar spine creating variable degrees of neural foraminal narrowing a s detailed above.
== END | disposition home or self-care (01) ==
LOC: RADMRIMAIN 11:06
PROVIDERS: ATTEND Family Medicine
DX: M48.061 Spinal stenosis, lumbar region without neurogenic claudication (principal); M51.26 Other intervertebral disc displacement, lumbar region; M47.816 Spondylosis without myelopathy or radiculopathy, lumbar region; M46.96 Unspecified inflammatory spondylopathy, lumbar region; M48.56XA Collapsed vertebra, not elsewhere classified, lumbar region, initial encounter for fracture
CPT/HCPCS: 72158; A9585

== ENCOUNTER 2018-12-28 13:00 | Inpatient (IN) | payer MEDICARE, BC ==
[~2018-12-28 13:00] MED LIST changes: -DOBUTamine DRIP for NUC MED 500 MG in DEXTROSE/WATER 1 250ML.BAG IV ONE; +HYDROmorphone 0.5 MG/0.5 ML SYRINGE IVP PRN; +ONDANSETRON 4 MG/2 ML VIAL IVP ONE; +ONDANSETRON 4 MG/2 ML VIAL IVP PRN; +SODIUM CHLORIDE 0.9% IRRIGATIO 1,000 ML IRRIGATION ONE
[2018-12-28 13:38] LABS: Glucose,Whole Blood 83 mg/dL (75-99)
[2018-12-28] MEDS: LACTATED RINGERS 1,000 ML IV SCH (13:43)
[2018-12-28] MEDS ORDERED: SUCCINYLCHOLINE CHLORIDE 100 MG/5 ML SYR IV ONE (15:55)
[2018-12-28] MEDS ORDERED: GLYCOPYRROLATE 0.2 MG/ML 2 ML VIAL ONE (15:55)
[2018-12-28] MEDS ORDERED: PROPOFOL 10 MG/ML 20 ML VIAL IV ONE (15:55)
[2018-12-28] MEDS ORDERED: fentaNYL (PF) 50 MCG/ML 2 ML AMP ONE (15:55)
[2018-12-28] MEDS ORDERED: LIDOCAINE 1% INJ 10MG/ML (20 ML MDV) ONE (15:55)
[2018-12-28] MEDS ORDERED: BUPIVACAINE (PF) 0.5% 30 ML VIAL SQ ONE (15:57)
[2018-12-28] MEDS ORDERED: IOPAMIDOL-370 50ML BTL IRRIGATION ONE ×2 (15:58)
[2018-12-28] MEDS ORDERED: ONDANSETRON 4 MG/2 ML VIAL IVP PRN (16:53)
[2018-12-28] MEDS ORDERED: BENZOCAINE/MENTHOL LOZENG 1 EACH LOZENGE MUCOUS MEM PRN (16:53)
[2018-12-28] MEDS ORDERED: HYDROcodone/APAP 5-325MG 1 EACH TAB PO PRN (16:55)
[2018-12-28] MEDS ORDERED: GABAPENTIN 400 MG CAP PO PRN (16:55)
--- NOTE | 2018-12-28 17:01 | P.OP ---
Date of Procedure: 12/28/18 Preoperative Diagnosis: L5 compression fracture possible pathologic, history of liver cancer, possible new primary pathologic process, low back pain Postoperative Diagnosis: Same Anesthesia: GETA Pathology: other (L5 vertebral body biopsy sent to pathology) Condition: stable Disposition: PACU Description of Procedure: BRIEF OPERATIVE NOTE Preoperative Diagnosis: Vertebral compression fracture at L5, likely pathologic, history of liver cancer, possible new primary Postoperative Diagnosis: Same Procedure: Kyphoplasty at L5 Vertebral body biopsy at L5 Use of computer navigation guidance Use of fluoroscopic guidance Surgeon: Dr. Hirsch Pickle Pumper: Raj GUPTA who is present throughout the entire the case persistence during positioning, dissection, exposure, visualization, and all crucial elements of the case as well as closure. Anesthesia: General anesthesia per Dr. Woods Estimated blood loss: Less than 10 mL Specimen: Vertebral body biopsy of L5 sent to pathology in formalin Complications: None apparent Components implanted: Bone cement Approximately 6 mL Disposition: To recovery room in good stable condition. OPERATIVE INDICATIONS The patient has been having issues in their back over the past couple of months. He had history of significant lumbar issues but more significantly had issues with history of lumbar liver cancer. He had been treated with oncology and with the new fracture was uncertain whether there was a pathologic process going on at L5. There were numerous questions regards to the L5 compression fracture and the MRI findings with the possibility of pathologic process and a new primary at that area. The bony pathologic follow-up pathology would make a big difference in terms of treatment choice and medication regimen and with the patient's pain in the recreation from hematology oncology was felt that a biopsy and kyphoplasty was warranted for the L5 fracture. . The patient has been through conservative treatment. They attempted conservative care with bracing however they're not having any benefit despite brace use. They continue to have sig nificant pain and debility due to their fracture. We discussed various treatment options including surgery, and the patient wishes to proceed with surgery We discussed the risk, patient's alternatives and benefits of surgery including but not limited to, risk of bleeding risk of infection, risk of need for further surgery, risk of decreased, loss of motion, loss of function, cement extravasation, nerve damage, paralysis, heart attack, blindness and . OPERATIVE SUMMARY After discussing all the risks, patient alternatives and benefits at length, the patient elected to proceed with surgical intervention, signed informed consent, and presented for their procedure. The patient was seen and examined in the preoperative holding area and the surgical site was marked. The patient was given antibiotics and brought to the operating room. The patient was sedated and intubated by anesthesia in standard fashion. The patient was positioned on to the operating room table in a prone position on the appropriate well-padded and well molded bilateral chest rolls. We were careful to pad any bony prominences and pressure points. We were careful to maintain the patient's cervical spine and good neutral alignment and position throughout. We used a computer navigation system with the trocar for access to the pedicle as well as a C-arm machine to establish fluoroscopic guidance in AP and lateral positions. We were able to localize the fractures appropriately at L5 . The patient was prepped and draped in a normal standard fashion. An appropriate timeout and keystone protocol performed. We were able to proceed with the surgery. The local wound area was infiltrated with local anesthetic. An incision was made over the lateral aspect of the pedicle over the appropriate levels with a small 2 mm stab incision at L5 . Intraoperative fluoroscopy was taken which showed a marker at the appropriate level at L5. With the appropriate level positively confirmed, I was able to position a sharp trocar over the lateral aspect of the pedicle. As able to advance the trocar into the pedicle and into the posterior aspect of vertebral body being careful to avoid penetration cephalad caudad or medially. The trocar was placed appropriately into the posterior aspect of vertebral body at the appropriate levels. This was confirmed with C-arm guidance. With the trocar intact I was then able to take a bone biopsy with a biopsy punch or a bony drill. The biopsy specimen was passed off to be sent to pathology in formalin The specimen was solid bone without any obvious change. I was then able to place the kyphoplasty balloon within the vertebral bodyof L5 . The position was checked on C-arm. I was able to inflate the balloon under low pressure and visualization with C-arm. The balloon was well enclosed within the vertebral body. The cement was prepared. With the cement at appropriate working condition the balloons were deflated and removed. I was able to place bony cement with trocar with the cement delivery device under low pressure. It had good fill within the vertebral body. There is no evidence of any extravasation of the cement posteriorly toward the canal. The cement was well contained at the appropriate levels. The cement was allowed to cure appropriately. The trochars removed and final images were taken on C-arm. This showed the cement at the appropriate levelsof L5 . We were able to proceed with closure. The wound was cleaned and dried and dressed with the appropriate dressing. The drapes were broken down. The patient was gently rolled back onto their hospital bed being careful to maintain their cervical spine and good neutral alignment and position. They were woken up by anesthesia, extubated, and brought to the recovery room in good stable condition. The patient will be admitted to the hospital for observation and for appropriate postoperative care, medical management and monitoring. We will continue to follow them closely about the postoperative course.
--- NOTE | 2018-12-28 18:14 | XR ---
EXAMINATION TYPE: XR lumbar spine 2 or 3V, FL guidance operating room DATE OF EXAM: 12/28/2018 COMPARISON: NONE HISTORY: 83-year-old male kyphoplasty FINDINGS: Intraprocedural images show cannula extending into the posterior elements of the L5 vertebral body an d eventual placement of methylmethacrylate cement. FLUOROSCOPY Fluoroscopy time of 43 seconds was used during kyphoplasty. 4 image/s document/s the procedure. IMPRESSION: Intraprocedural fluoroscopy during L5 kyphoplasty.
[2018-12-28 18:28] LABS: Glucose,Whole Blood 70 mg/dL (75-99)
[2018-12-28 18:28] LABS: Glucose,Whole Blood 68 mg/dL (75-99)
[2018-12-28] MEDS: GLIMEPIRIDE 4 MG TAB PO SCH (20:23)
[2018-12-28] MEDS: LENVATINIB MESYLATE PO SCH (20:24)
[2018-12-28] MEDS: CARVEDILOL 6.25 MG TAB PO SCH (20:25)
[2018-12-28] MEDS: ATORVASTATIN 10 MG TAB PO SCH (20:25)
[2018-12-28] MEDS: SODIUM CHLORIDE 0.9% 1,000 ML IV SCH (20:25)
[2018-12-28] MEDS: HYDROcodone/APAP 5-325MG 1 EACH TAB PO PRN (20:26)
[2018-12-28] MEDS: HYDROmorphone 0.5 MG/0.5 ML SYRINGE IVP PRN (22:00)
[2018-12-29] MEDS: HYDROcodone/APAP 5-325MG 1 EACH TAB PO PRN ×3 (00:39→20:35)
[2018-12-29] MEDS: HYDROmorphone 0.5 MG/0.5 ML SYRINGE IVP PRN (04:49)
[2018-12-29] MEDS: LACTATED RINGERS 1,000 ML IV SCH (05:52)
[2018-12-29] MEDS: SODIUM CHLORIDE 0.9% 1,000 ML IV SCH ×2 (05:54→20:36)
[2018-12-29] MEDS: CARVEDILOL 6.25 MG TAB PO SCH ×2 (07:46→17:05)
[2018-12-29] MEDS: DOXAZOSIN 1 MG TAB PO SCH (07:46)
[2018-12-29] MEDS: LISINOPRIL 20 MG TAB PO SCH (07:46)
[2018-12-29] MEDS: ASPIRIN 81 MG PO SCH (07:47)
[2018-12-29] MEDS: FUROSEMIDE 20 MG TAB PO SCH (07:47)
[2018-12-29] MEDS: amLODIPine 5 MG TAB PO SCH (07:47)
[2018-12-29] MEDS: GLIMEPIRIDE 4 MG TAB PO SCH ×2 (07:47→17:05)
--- NOTE | 2018-12-29 09:05 | P.DS ---
Providers Date of admission: 12/28/18 Attending physician: Juana Hirsch Primary care physician: Aguilar Barbahven Hospital Course: The patient presented on the day of admission as per their operative note. He had an L5 compression fracture with possible pathologic etiology. He had been going through management for his numerous medical issues including his history of liver cancer and further treatment or possible metastasis was to be determined with possible Other etiology and possible pathologic process at the L5 vertebral body. The patient presented on the day of admission as per their operative note. Physical Exam The incision site is clean dry and intact. There is no erythema no drainage. There is no purulence no evidence of infection. Abdomen soft and nontender. Chest has good excursion with deep inspiration and expiration. The patient has active and passive range of motion intact at the upper and lower extremities. There is no acute change in neurologic status. Hospital Course The patient has been making good progress postoperatively. He feels he has had some improvement in his overall pain. They have completed the prophylactic antibiotics without any signs or symptoms of infection. The patient has been able to advance their diet, and is tolerating diet adequately. The pain was initially controlled with IV medications and is now controlled appropriately with oral medications. The patient has been able to increase their mobilization. The patient had difficulty with his mobilization preoperatively and is at his normal able towards status which is somewhat difficult for him with a walker. He lives with his son who is been able to take care of him and help him to some degree. He could potentially have some benefit with home health for physical therapy and will have case management see him before he goes as well. The patient has progressed appropriately. I think they are in good stable condition for discharge today. They will be sent home with appropriate prescriptions. I answered their questions to the best of my ability in a language that they can understand and they are agreeable with the plan. They will follow up as directed in approximately 2 weeks or sooner if he is having any problems. . Patient Condition at Discharge: Fair Plan - Discharge Summary Discharge Rx Participant: No New Discharge Prescriptions: No Action traZODone HCL [traZODone] 300 mg PO HS PRN PRN Reason: Insomnia Lovastatin 40 mg PO HS Doxazosin [Cardura] 1 mg PO DAILY amLODIPine BESYLATE [Norvasc] 5 mg PO DAILY Glimepiride [Amaryl] 4 mg PO BID Furosemide [Lasix] 20 mg PO DAILY Hydrocodone/Acetaminophen [[place] 5-325] 1 tab PO Q4HR PRN PRN Reason: Pain Carvedilol [Coreg] 6.25 mg PO BID Gabapentin [Neurontin] 400 mg PO QID PRN PRN Reason: Pain Lisinopril 40 mg PO DAILY Aspirin [Adult Low Dose Aspirin EC] 81 mg PO DAILY Lenvatinib Mesylate [Lenvima] 12 mg PO HS Discharge Medication List Doxazosin [Cardura] 1 mg PO DAILY 07/27/15 [History] Lovastatin 40 mg PO HS 07/27/15 [History] traZODone HCL [traZODone] 300 mg PO HS PRN 07/27/15 [History] Carvedilol [Coreg] 6.25 mg PO BID 09/13/18 [History] Furosemide [Lasix] 20 mg PO DAILY 09/13/18 [History] Gabapentin [Neurontin] 400 mg PO QID PRN 09/13/18 [History] Glimepiride [Amaryl] 4 mg PO BID 09/13/18 [History] Hydrocodone/Acetaminophen [[place] 5-325] 1 tab PO Q4HR PRN 09/13/18 [History] amLODIPine BESYLATE [Norvasc] 5 mg PO DAILY 09/13/18 [History] Lisinopril 40 mg PO DAILY 09/15/18 [History] Aspirin [Adult Low Dose Aspirin EC] 81 mg PO DAILY 09/21/18 [History] Lenvatinib Mesylate [Lenvima] 12 mg PO HS 12/22/18 [History] Follow up Appointment(s)/Referral(s): Juana Hirsch DO [Doctor of Osteopathic Medicine] - 1 Week Activity/Diet/Wound Care/Special Instructions: Keep site clean. May shower with waterproof Tegaderm intact. Do not soak in a tub. After 72 hours postoperatively, patient May remove dressing and then may shower with area uncovered. Leave Steri-Strips intact and allow them to fray off on their own. May ambulate as tolerated. Avoid heavy or rigorous activity. No repetitive bending twisting or lifting. No overhead work. Discharge Disposition: HOME SELF-CARE
--- NOTE | 2018-12-29 13:23 | PN ---
PROGRESS NOTE DATE OF SERVICE: 12/29/2018 CHIEF COMPLAINT: Status post L5 kyphoplasty. HISTORY OF PRESENT ILLNESS: This gentleman is doing well. He is not having a great deal of pain. He has had no fever or chills. He expects to go home today. PHYSICAL EXAM: Chest is clear. Cardiac exam is normal. The abdomen is quite protuberant without any masses or tenderness. IMPRESSION: 1. Status post kyphoplasty of L5. 2. Primary carcinoma of the liver. 3. Hypertension. 4. Diabetes. 5. Chronic obstructive pulmonary disease. PLAN: Probably home today. MMODL / IJN: [id number] /
--- NOTE | 2018-12-29 13:38 | CONS ---
CONSULTATION CHIEF COMPLAINT: Back pain. HISTORY OF PRESENT ILLNESS: This is another admission for this 83-year-old white male who has a compression fracture of L5 and is brought in for a kyphoplasty. He also has primary hepatic neoplasm for which he is being treated. He has had a history of hypertension, COPD and type 2 NIDDM. REVIEW OF SYSTEMS: He has had no recent neurologic problems with the lower extremities, headache, change in vision or hearing, sensory motor issues, ataxia, etc. He has had no chest pain, cough, hemoptysis, sputum production, recent chest pain, angina, orthopnea, PND, etc. He has not had any significant problems with the abdomen except for distention due to some ascitic fluid and the discomfort in the upper abdomen from his neoplasm. He has had no nausea, vomiting, hematemesis, melena, hematochezia, jaundice, etc. He has had no hematuria, frequency, urgency, dysuria, etc. He has had no polydipsia, polyphagia, or polyuria. Past medical history, family history and personal and social histories reveal that he is only allergic to DEMEROL. He is on lovastatin 40 mg once a day, amlodipine 5 mg once a day, doxazosin 1 mg once a day, glimepiride 4 mg twice a day, furosemide 20 mg once a day, carvedilol 6.25 twice a day, Xanax 0.25 once a day p.r.n., gabapentin 400 mg one q.i.d., lisinopril 40 mg once a day, Vicodin 5/325 one q.4 p.r.n., Neurontin 400 mg q.i.d., trazodone 150 one or two at bedtime p.r.n. for sleep and 81 mg of enteric-coated aspirin. The remainder of his history is unremarkable. He used to smoke, but does not any longer. PHYSICAL EXAMINATION: Blood pressure 120/64, pulse 74, respirations 12, and he is afebrile. GENERAL: He appeared to be slightly overweight with abdominal distention. Skin color is normal. Skin is warm and dry. Lymph nodes are not enlarged. Head, ears, eyes, nose, mouth, and throat were normal. Neck veins are not distended. Carotids are normal. Chest is clear to auscultation and percussion. Cardiac exam demonstrated what sounds like sinus rhythm. The abdomen is very protuberant and somewhat firm and there is no definite visceromegaly. Bowel sounds are present. Extremities are normal. Neurologically, he is intact. IMPRESSION: 1. Compression fracture of L5. 2. Primary hepatic carcinoma. 3. Chronic obstructive pulmonary disease. 4. Hypertension. 5. Type 2 non-insulin dependent diabetes mellitus. 6. Osteoarthritis. RECOMMENDATION: None. He is stable at the present time and should tolerate his procedure well. MMODL / IJN: [id number] /
[2018-12-29] MEDS: ATORVASTATIN 10 MG TAB PO SCH (20:36)
[2018-12-29] MEDS: LENVATINIB MESYLATE PO SCH (20:36)
[2018-12-30] MEDS: HYDROcodone/APAP 5-325MG 1 EACH TAB PO PRN ×4 (02:34→23:33)
[2018-12-30] MEDS: LACTATED RINGERS 1,000 ML IV SCH ×2 (06:01→22:22)
[2018-12-30] MEDS: amLODIPine 5 MG TAB PO SCH (07:35)
[2018-12-30] MEDS: CARVEDILOL 6.25 MG TAB PO SCH ×2 (07:35→16:42)
[2018-12-30] MEDS: ASPIRIN 81 MG PO SCH (07:35)
[2018-12-30] MEDS: LISINOPRIL 20 MG TAB PO SCH (07:35)
[2018-12-30] MEDS: GLIMEPIRIDE 4 MG TAB PO SCH ×2 (07:36→16:42)
[2018-12-30] MEDS: DOXAZOSIN 1 MG TAB PO SCH (07:36)
[2018-12-30] MEDS: FUROSEMIDE 20 MG TAB PO SCH (07:36)
--- NOTE | 2018-12-30 09:01 | P.PN ---
Progress Note - Text Progress Note Date: 12/30/18 Patient is a very pleasant 83-year-old male who is examined at bedside. Evaluation following L5 kyphoplasty and biopsy. Patient was originally planning to be discharged home yesterday. Patient states he is significant difficulty with ambulation which is chronic for him. He has returned to his baseline. He states he uses a walker to cane and ambulate. He does have chronic weakness of the right lower extremity is unable to perform dorsiflexion, plantarflexion, or any active range of motion of all the toes of the right foot. He states he must ambulate up 14 steps in his house to get to his bedroom. He does not feel he'll be able to return home safely. At this time consultation has been placed with case management who is currently working on possible rehab placement to [facility]. Patient is known to follow with oncology at [facility] and is currently on immunotherapy. Nursing states they are determining if the patient will qualify for rehab placement as his immunotherapy medications caused approximately $19,000 per month. Patient was originally outpatient status. He is been transferred to inpatient status. Patient is approved for rehab we will plan for discharge to rehabilitation facility this coming 01/02/2019. Patient states his back pain is adequately controlled. He does admits lower extremity weakness. He denies any lower extremity radiculopathy bilaterally. Patient has not had a bowel movement but is passing gas. He is voiding without difficulty. Physical exam: Patient is awake, alert, and oriented 3 Vital signs stable Good chest excursion with deep inspiration and expiration Abdomen soft nontender Examination of lumbar spine reveals skin is intact with no abrasions, lacerations, or bruises; no erythema, purulence or signs of infection Evidence of a large well-healed incision along the midline of the lumbar spine Dressing over the left paraspinal muscles at L5 is dry and intact with a small area of dried blood Dorsiflexion, plantarflexion, and extensor hallucis longus positive sustained on the left Patient is unable to perform active dorsiflexion, plantarflexion, and extensor hallucis longus on the right Patient is able to perform bilateral hip flexion against resistance Straight leg test negative bilateral lower extremities No signs or symptoms of DVT; no calf pain No pain with internal and external rotation of the hips bilaterally Neurovascularly intact Assessment: Status post L5 kyphoplasty and biopsy L5 compression fracture deformity possibly pathologic History of liver cancer Possible Primary pathological process Low back pain History of hypertension, heart disease, hyperlipidemia, and type 2 diabetes Plan: 1. Patient feels his back pain is currently medically controlled at his L5 compression fracture deformity site and status post kyphoplasty. He does have significant difficulty with ambulation which is chronic for him with right lower extremity weakness. He uses a cane and a walker to aid in ambulation the outpatient setting. He does not feel safe to return home as he states he must ambulate 14 steps within his home to reach his bedroom. Case management is currently working on possible approval for placement to [facility]. If approved, we feel this is good plan of care. Patient will continue to remain in the hospital with plans for discharge to rehabilitation facility this coming 01/02/2019. He is encouraged to continue working with physical therapy to increase mobility ambulation. He may continue with medicines as prescribed for pain control. 2. Patient will be seen and examined by his primary care provider for medical management
[2018-12-30 13:28] VITALS: BMI 31.1
[2018-12-30] MEDS: SODIUM CHLORIDE 0.9% 1,000 ML IV SCH ×2 (17:25→22:21)
[2018-12-30] MEDS: LENVATINIB MESYLATE PO SCH (20:23)
[2018-12-30] MEDS: ATORVASTATIN 10 MG TAB PO SCH (20:23)
--- NOTE | 2018-12-30 22:03 | PN ---
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 HISTORY OF PRESENT ILLNESS: This gentleman is doing fairly well, but he has quite a bit of weakness in the right leg. He is having quite a bit of quite a bit of difficulty ambulating. It is now planned that he will go to a [facility] for rehab after his 72 hours rather than going home. PHYSICAL EXAMINATION: His chest is clear. Cardiac exam is normal. The abdomen is protuberant and soft. He does have drop foot on the right. IMPRESSION: 1. Compression fracture of the lumbar spine, status post . 2. 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 3. Primary hepatocellular carcinoma. 4. Chronic obstructive pulmonary disease. 5. Coronary artery disease. PLAN: Continue inpatient physical therapy until he can be discharged to a rehab center on Wednesday. MYRA / CALE: [id number] /
[2018-12-30] MEDS: traZODone HCL 100 MG TAB PO PRN (23:49)
[2018-12-31] MEDS: amLODIPine 5 MG TAB PO SCH (09:40)
[2018-12-31] MEDS: CARVEDILOL 6.25 MG TAB PO SCH ×2 (09:41→18:07)
[2018-12-31] MEDS: LISINOPRIL 20 MG TAB PO SCH (09:41)
[2018-12-31] MEDS: FUROSEMIDE 20 MG TAB PO SCH (09:41)
[2018-12-31] MEDS: ASPIRIN 81 MG PO SCH (09:41)
[2018-12-31] MEDS: GLIMEPIRIDE 4 MG TAB PO SCH ×2 (09:41→18:07)
[2018-12-31] MEDS: DOXAZOSIN 1 MG TAB PO SCH (09:42)
--- NOTE | 2018-12-31 11:13 | PN ---
PROGRESS NOTE CHIEF COMPLAINT: Spastic paraplegia. HISTORY OF PRESENT ILLNESS: This gentleman is doing fairly well. He is fairly comfortable, but he is having trouble sleeping. He is planned to go to a [facility] on Wednesday. He is not short of breath or having any chest or abdominal pain. PHYSICAL EXAMINATION: Chest is clear. Cardiac exam is normal. The abdomen is protuberant and soft. Extremities are normal. IMPRESSION: 1. 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 2. Hepatocellular carcinoma. 3. Hypertension. 4. Chronic obstructive pulmonary disease. 5. Coronary artery disease. 6. Insomnia. PLAN: Increase trazodone at bedtime. He is also requesting Ambien. MMODL / IJN: [id number] /
[2018-12-31] MEDS: HYDROcodone/APAP 5-325MG 1 EACH TAB PO PRN ×2 (15:28→21:49)
[2018-12-31] MEDS: SODIUM CHLORIDE 0.9% 1,000 ML IV SCH ×2 (15:29→22:53)
[2018-12-31] MEDS: ZOLPIDEM 5 MG TAB PO SCH (21:46)
[2018-12-31] MEDS: traZODone HCL 100 MG TAB PO PRN (21:46)
[2018-12-31] MEDS: ATORVASTATIN 10 MG TAB PO SCH (21:46)
[2018-12-31] MEDS: LENVATINIB MESYLATE PO SCH (21:46)
[2019-01-01] MEDS: LACTATED RINGERS 1,000 ML IV SCH (02:05)
[2019-01-01] MEDS: HYDROcodone/APAP 5-325MG 1 EACH TAB PO PRN (03:16)
[2019-01-01 07:21] LABS: Glucose,Whole Blood 59 mg/dL (75-99)
[2019-01-01 07:36] LABS: Glucose,Whole Blood 63 mg/dL (75-99)
[2019-01-01 07:54] LABS: Glucose,Whole Blood 121 mg/dL (75-99)
[2019-01-01] MEDS: CARVEDILOL 6.25 MG TAB PO SCH ×2 (07:56→16:53)
[2019-01-01] MEDS: GLIMEPIRIDE 4 MG TAB PO SCH ×2 (07:57→16:53)
[2019-01-01] MEDS: ASPIRIN 81 MG PO SCH (07:57)
[2019-01-01] MEDS: amLODIPine 5 MG TAB PO SCH (07:57)
[2019-01-01] MEDS: FUROSEMIDE 20 MG TAB PO SCH (07:57)
[2019-01-01] MEDS: DOXAZOSIN 1 MG TAB PO SCH (07:57)
[2019-01-01] MEDS: LISINOPRIL 20 MG TAB PO SCH (07:58)
[2019-01-01 10:53] LABS: Glucose,Whole Blood 171 mg/dL (75-99)
--- NOTE | 2019-01-01 13:41 | P.PN ---
Progress Note - Text Progress Note Date: 01/01/19 Postoperative day #4 Patient is seen and examined today at bedside. The patient has some pain around the surgical site as expected, but has been making good progress in terms of his pain in his lower back. Pain is being controlled with medication. He has been doing better with his mobilization ambulation. He denies chest pain or shortness of breath. Physical Exam Afebrile with stable vital signs Abdomen is soft nontender. Chest has good excursion deep and space expiration The incision site is clean dry and intact. No erythema there is no purulence. Extremities have not had neurologic change from prior to surgery. Calves and thighs were soft nontender without evidence of DVT. Assessment/Plan Postoperative day #4 status post vertebral kyphoplasty of L5 for likely pathologic compression fracture Lower extremity weakness with difficulty ambulating Hepatocellular carcinoma with possible metastasis COPD and coronary artery disease Patient is progressing somewhat slowly from the surgery due to his multiple medical issues and lower extremity weakness. We will continue to increase the patient's mobilization with therapy. We will continue pain control with oral or IV medications. The patient has limited assistance at home and with his lower extremity weakness he would be best served with further strengthening before discharge home. He is still a safety concern in terms of his inflation if he is on his own and he will likely be discharged to custodial tomorrow to continue to strengthen. We'll continue to follow patient closely.
[2019-01-01] MEDS: SODIUM CHLORIDE 0.9% 1,000 ML IV SCH (15:54)
[2019-01-01] MEDS: SENNOSIDES-DOCUSATE SODIUM 1 EACH TAB PO SCH (16:53)
[2019-01-01 16:54] LABS: Glucose,Whole Blood 169 mg/dL (75-99)
[2019-01-01] MEDS: ZOLPIDEM 5 MG TAB PO SCH (20:02)
[2019-01-01] MEDS: ATORVASTATIN 10 MG TAB PO SCH (20:02)
[2019-01-01] MEDS: LENVATINIB MESYLATE PO SCH (20:02)
[2019-01-01 20:11] LABS: Glucose,Whole Blood 230 mg/dL (75-99)
[2019-01-01] MEDS: traZODone HCL 100 MG TAB PO PRN (20:51)
[2019-01-02] MEDS: HYDROcodone/APAP 5-325MG 1 EACH TAB PO PRN (00:12)
[2019-01-02] MEDS: SODIUM CHLORIDE 0.9% 1,000 ML IV SCH (05:15)
[2019-01-02] MEDS: LACTATED RINGERS 1,000 ML IV SCH (06:05)
[2019-01-02 07:20] LABS: Glucose,Whole Blood 120 mg/dL (75-99)
[2019-01-02] MEDS: FUROSEMIDE 20 MG TAB PO SCH (07:39)
[2019-01-02] MEDS: LISINOPRIL 20 MG TAB PO SCH (07:39)
[2019-01-02] MEDS: SENNOSIDES-DOCUSATE SODIUM 1 EACH TAB PO SCH (07:40)
[2019-01-02] MEDS: DOXAZOSIN 1 MG TAB PO SCH (07:40)
[2019-01-02] MEDS: amLODIPine 5 MG TAB PO SCH (07:40)
[2019-01-02] MEDS: ASPIRIN 81 MG PO SCH (07:40)
[2019-01-02] MEDS: CARVEDILOL 6.25 MG TAB PO SCH (07:40)
[2019-01-02] MEDS: GLIMEPIRIDE 4 MG TAB PO SCH (07:40)
--- NOTE | 2019-01-02 08:51 | P.DS ---
Providers Date of admission: 12/29/18 16:16 Expected date of discharge: 01/02/19 Attending physician: Juana Hirsch Consults: 12/29/18 12:09 Consult Physician Routine Consulting Provider: Aguilar Alfredo Consult Reason/Comments: medical management Do you want consulting provider notified?: Yes Primary care physician: Aguilar Alfredo - Discharge Diagnosis(es) (1) S/P kyphoplasty Current Visit: Yes Status: Acute (2) Compression fracture of L5 vertebra Current Visit: Yes Status: Acute (3) History of liver cancer Current Visit: Yes Status: Acute (4) History of hypertension Current Visit: Yes Status: Acute (5) History of heart disease Current Visit: Yes Status: Acute (6) History of hyperlipidemia Current Visit: Yes Status: Acute (7) History of type 2 diabetes mellitus Current Visit: Yes Status: Acute Hospital Course: This is a pleasant 83-year-old male who presented with L5 to body compression fracture deformity likely pathologic with history of liver cancer and possible new primary cancer who failed outpatient conservative therapy. He was admitted for an L5 kyphoplasty with biopsy. The patient tolerated the procedure well and did well postoperatively and terms of his low back pain. He does have significant difficulty with mobilization and ambulation which is chronic for him. 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 He uses a cane and walker in the outpatient setting to help with mobility. He is known have chronic weakness with his right lower extremity and is unable to perform dorsiflexion, plantarflexion, and any active range of motion of the toes of the right foot. Patient would benefit by discharged to a rehabilitation facility to try to help improve his mobility prior to returning home postoperatively. This has been approved through his insurance. He is currently planning for discharge today to rehabilitation facility. Condition on day of discharge stable. Patient was cleared preoperatively for surgery by Dr. Alfredo. Patient currently denies any nausea, vomiting, fever, or chills. Patient is eating and voiding freely without difficulty. His stools firm but he was able to have 2 bowel movements yesterday. Patient does not need a dressing intact over his incision site at this time. He may shower without a dressing intact. Patient should refrain from driving until at least after their first follow-up appointment in the office. Patient should avoid excessive bending, lifting, and twisting; no lifting greater than 10 pounds. MAPS has been reviewed today, 01/02/2019 , with an Overall Overdose Risk Score of 270 and a narcotic risk score of 391. An "Opiod Start Talking" Form has been signed and placed in the patient's chart. A prescription has been written for Aguila 5 mg/325 mg 1 tab every 4 hours as needed for pain, dispensed #42. Patient does take this medicine in the outpatient setting. Patient is also given prescriptions for Neurontin 400 mg 1 tab 4 times a day when necessary for pain, dispense #28. He may resume other previously pr escribed medications. Physical Exam on day of discharge: Patient is awake, alert, and oriented 3 Vital signs stable Good chest excursion with deep inspiration and expiration Abdomen soft nontender Examination of lumbar spine reveals skin is intact with no abrasions, lacerations, or bruises; no erythema, purulence or signs of infection Evidence of a large well-healed incision along the midline of the lumbar spine Dressing over the left paraspinal muscles at L5 is removed Incision site is clean and dry and healing appropriately with no significant erythema, bruising, or obvious sign of infection Dorsiflexion, plantarflexion, and extensor hallucis longus positive sustained on the left Patient is unable to perform active dorsiflexion, plantarflexion, and extensor hallucis longus on the right Patient is able to perform bilateral hip flexion against resistance Straight leg test negative bilateral lower extremities No signs or symptoms of DVT; no calf pain No pain with internal and external rotation of the hips bilaterally Neurovascularly intact Procedures: L5 kyphoplasty biopsy Patient Condition at Discharge: Fair Plan - Discharge Summary Discharge Rx Participant: No New Discharge Prescriptions: New Gabapentin [Neurontin] 400 mg PO QID PRN #28 capsule PRN Reason: Pain HYDROcodone/APAP 5-325MG [[place]guila 5] 1 each PO Q4HR PRN #42 tab PRN Reason: Pain Continue traZODone HCL [traZODone] 300 mg PO HS PRN PRN Reason: Insomnia Lovastatin 40 mg PO HS Doxazosin [Cardura] 1 mg PO DAILY amLODIPine BESYLATE [Norvasc] 5 mg PO DAILY Glimepiride [Amaryl] 4 mg PO BID Furosemide [Lasix] 20 mg PO DAILY Carvedilol [Coreg] 6.25 mg PO BID Lisinopril 40 mg PO DAILY Aspirin [Adult Low Dose Aspirin EC] 81 mg PO DAILY Lenvatinib Mesylate [Lenvima] 12 mg PO HS Discontinued Hydrocodone/Acetaminophen [[place] 5-325] 1 tab PO Q4HR PRN PRN Reason: Pain Gabapentin [Neurontin] 400 mg PO QID PRN PRN Reason: Pain Discharge Medication List Doxazosin [Cardura] 1 mg PO DAILY 07/27/15 [History] Lovastatin 40 mg PO HS 07/27/15 [History] traZODone HCL [traZODone] 300 mg PO HS PRN 07/27/15 [History] Carvedilol [Coreg] 6.25 mg PO BID 09/13/18 [History] Furosemide [Lasix] 20 mg PO DAILY 09/13/18 [History] Glimepiride [Amaryl] 4 mg PO BID 09/13/18 [History] amLODIPine BESYLATE [Norvasc] 5 mg PO DAILY 09/13/18 [History] Lisinopril 40 mg PO DAILY 09/15/18 [History] Aspirin [Adult Low Dose Aspirin EC] 81 mg PO DAILY 09/21/18 [History] Lenvatinib Mesylate [Lenvima] 12 mg PO HS 12/22/18 [History] Gabapentin [Neurontin] 400 mg PO QID PRN #28 capsule 01/02/19 [Rx] HYDROcodone/APAP 5-325MG [Aguila 5] 1 each PO Q4HR PRN #42 tab 01/02/19 [Rx] Follow up Appointment(s)/Referral(s): Juana Hirsch DO [Doctor of Osteopathic Medicine] - 01/06/19 2:30 pm Patient Instructions/Handouts: Kyphoplasty (DC) Activity/Diet/Wound Care/Special Instructions: Keep site clean. May shower with waterproof Tegaderm intact. Do not soak in a tub. After 72 hours postoperatively, patient May remove dressing and then may shower with area uncovered. Leave Steri-Strips intact and allow them to fray off on their own. May ambulate as tolerated. Avoid heavy or rigorous activity. No repetitive bending twisting or lifting. No overhead work. Discharge Disposition: TRANSFER TO SNF/ECF
[2019-01-02 11:30] LABS: Glucose,Whole Blood 153 mg/dL (75-99)
[2019-01-02 15:46] VITALS: BP 127/61; PULSE 72; RESP 16; TEMP 96.9
--- NOTE | 2019-01-02 20:46 | PN ---
PROGRESS NOTE CHIEF COMPLAINT: Spastic paraplegia. HISTORY OF PRESENT ILLNESS: This gentleman is resting quietly and expects to go to [facility] tomorrow. PHYSICAL EXAM: Chest is clear. Cardiac exam is normal. Abdomen is soft, nontender. IMPRESSION: 1. Spastic paraplegia. 2. Hepatocellular carcinoma. 3. Coronary artery disease. 4. Chronic obstructive pulmonary disease. PLAN: He will be going to the snf tomorrow. MMODL / IJN: [id number] /
== END 2019-01-02 14:05 | DRG 478 ==
LOC: OR 13:00 → 3NMEDONC 17:52 → OR 12-29 12:06 → 3NMEDONC 12-29 16:16
PROVIDERS: ADMIT Orthopaedic Surgery Orthopaedic Surgery of the Spine; ATTEND Orthopaedic Surgery Orthopaedic Surgery of the Spine
PROC: 0QB Lower Bones, Excision (ICD-10-PCS; 2018-12-28)
PROC: 0QU03JZ Supplement Lumbar Vertebra with Synthetic Substitute, Percutaneous Approach (ICD-10-PCS; 2018-12-28)
PROC: 0QS03ZZ Reposition Lumbar Vertebra, Percutaneous Approach (ICD-10-PCS; principal; 2018-12-28 14:30)
DX: M48.56XA Collapsed vertebra, not elsewhere classified, lumbar region, initial encounter for fracture (principal); C22.0 Liver cell carcinoma; C79.51 Secondary malignant neoplasm of bone; G82.20 Paraplegia, unspecified; E11.9 Type 2 diabetes mellitus without complications; E78.5 Hyperlipidemia, unspecified; G47.00 Insomnia, unspecified; I10 Essential (primary) hypertension; I25.10 Atherosclerotic heart disease of native coronary artery without angina pectoris; J44.9 Chronic obstructive pulmonary disease, unspecified; M19.90 Unspecified osteoarthritis, unspecified site; Z79.84 Long term (current) use of oral hypoglycemic drugs; Z79.899 Other long term (current) drug therapy; Z87.891 Personal history of nicotine dependence
CPT/HCPCS: 72100; 88307; 88311; 88341; 88342

== ENCOUNTER 2019-01-29 08:12 | Emergency (ER) | payer MEDICARE, BC ==
[2019-01-29] MEDS ORDERED: ONDANSETRON 4 MG/2 ML VIAL IVP STA (08:39)
[2019-01-29] MEDS ORDERED: SODIUM CHLORIDE 0.9% 500 ML 500 ML IV STA (08:39)
--- NOTE | 2019-01-29 08:53 | ED ---
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 Patient states he had radiation Wednesday and he is on a daily medication of chemotherapy. Patient states he s tarted being nauseated last night and vomiting. Patient also states she's had diarrhea for a couple days. Patient denies any abdominal pain. Patient denies any chest pain difficulty breathing shortness of breath. Patient denies any recent fever chills or cough. Patient states he has a rash between his buttocks. Patient states the put nystatin occasionally but not regularly. Patient states he does sit on his buttocks constantly all day. - Related Data Home Medications Medication Instructions Recorded Confirmed Doxazosin [Cardura] 1 mg PO DAILY 07/27/15 01/29/19 Lovastatin 40 mg PO HS 07/27/15 01/29/19 traZODone HCL [traZODone] 300 mg PO HS PRN 07/27/15 01/29/19 Carvedilol [Coreg] 6.25 mg PO BID 09/13/18 01/29/19 Furosemide [Lasix] 20 mg PO DAILY 09/13/18 01/29/19 Glimepiride [Amaryl] 4 mg PO BID 09/13/18 01/29/19 amLODIPine BESYLATE [Norvasc] 5 mg PO DAILY 09/13/18 01/29/19 Lisinopril 40 mg PO DAILY 09/15/18 01/29/19 Aspirin [Adult Low Dose Aspirin EC] 81 mg PO DAILY 09/21/18 01/29/19 Lenvatinib Mesylate [Lenvima] 12 mg PO HS 12/22/18 01/29/19 ALPRAZolam [Xanax] 0.25 mg PO TID PRN 01/29/19 01/29/19 Acetaminophen [Tylenol Extra 500 mg PO BID PRN 01/29/19 01/29/19 Strength] Acetaminophen/Diphenhydramine 1 tab PO HS PRN 01/29/19 01/29/19 [Tylenol PM 500-25mg] HYDROcodone/APAP 5-325MG [[place] 5] 1 tab PO Q4HR PRN 01/29/19 01/29/19 Nystatin 100,000Unit/gm Cream 1 applic TOPICAL TID 01/29/19 01/29/19 [Mycostatin Cream] Previous Rx's Medication Instructions Recorded Nystatin 1 applic TOPICAL BID #30 gm 01/29/19 Allergies Allergy/AdvReac Type Severity Reaction Status Date / Time meperidine HCl [From Demerol] AdvReac Hallucinati Verified 01/29/19 09:03 ons Review of Systems ROS Statement: Those systems with pertinent positive or pertinent negative responses have been documented in the HPI. ROS Other: All systems not noted in ROS Statement are negative. Past Medical History Past Medical History: Coronary Artery Disease (CAD), Cancer, Chest Pain / Angina, Diabetes Mellitus, Hyperlipidemia, Hypertension, Musculoskeletal Disorder Additional Past Medical History / Comment(s): Liver CA, bone CA being seen at [facility]. currently chemo, last rad 01/27/19 Fx L5. NT Rt leg. Rt great toe pain. History of Any Multi-Drug Resistant Organisms: None Reported Past Surgical History: Back Surgery, Cholecystectomy, Heart Catheterization With Stent Additional Past Surgical History / Comment(s): Surgery for broken nose. PTCA w/ 3 stents. Kyphoplasty 12/28/18 Past Anesthesia/Blood Transfusion Reactions: Previous Problems w/ Anesthesia Additional Past Anesthesia/Blood Transfusion Reaction / Comment(s): Combative x1. Date of Last Stent Placement:: 2008 Past Psychological History: No Psychological Hx Reported Smoking Status: Former smoker Past Alcohol Use History: None Reported Past Drug Use History: None Reported - Past Family History Mother Family Medical History: Diabetes Mellitus Father Family Medical History: Myocardial Infarction (NE) Brother(s) Family Medical History: Myocardial Infarction ([place]) Sister(s) Family Medical History: No Reported History Son(s) Family Medical History: No Reported History Daughter(s) Additional Family Medical History / Comment(s): open heart sugery as a toddler General Exam - General Exam Comments Initial Comments: GENERAL: Patient is well-developed and well-nourished. Patient is nontoxic and well- hydrated and is in mild distress. ENT: Neck is soft and supple. No significant lymphadenopathy is noted. Oropharynx is clear. Moist mucous membranes. Neck has full range of motion without eliciting any pain. EYES: The sclera were anicteric and conjunctiva were pink and moist. Extraocular movements were intact and pupils were equal round and reactive to light. Eyelids were unremarkable. PULMONARY: Unlabored respirations. Good breath sounds bilaterally. No audible rales rhonchi or wheezing was noted. CARDIOVASCULAR: There is a regular rate and rhythm without any murmurs gallops or rubs. ABDOMEN: Soft and nontender with normal bowel sounds. No palpable organomegaly was noted. There is no palpable pulsatile mass. SKIN: Patient has excoriation between the buttocks. NEUROLOGIC: Patient is alert and oriented x3. Cranial nerves II through XII are grossly intact. Motor and sensory are also intact. Normal speech, volume and content. Symmetrical smile. MUSCULOSKELETAL: Normal extremities with adequate strength and full range of motion. No lower extremity swelling or edema. No calf tenderness. LYMPHATICS: No significant lymphadenopathy is noted PSYCHIATRIC: Normal psychiatric evaluation. Course Vital Signs 01/29/19 01/29/19 01/29/19 08:24 08:30 09:00 Temperature 97.6 F Pulse Rate 87 Respiratory 16 18 20 Rate Blood Pressure 139/79 139/79 128/74 O2 Sat by Pulse 96 97 96 Oximetry 01/29/19 01/29/19 01/29/19 09:30 10:00 10:30 Temperature Pulse Rate 82 81 Respiratory 18 18 18 Rate Blood Pressure 145/72 133/68 159/78 O2 Sat by Pulse 95 95 95 Oximetry Medical Decision Making - Medical Decision Making Patient received Zofran and emergency part was no longer nauseated. Patient was reexamined by myself after labs came back he still had no abdominal pain. His abdomen looks distended to me but the patient and son said that the normal size of his abdomen. - Lab Data Result diagrams: 01/29/19 09:05 01/29/19 09:05 Lab Results 01/29/19 01/29/19 Range/Units 09:05 09:05 WBC 4.2 (3.8-10.6) k/uL RBC 4.03 L (4.30-5.90) m/uL Hgb 12.1 L (13.0-17.5) gm/dL Hct 35.2 L (39.0-53.0) % MCV 87.3 (80.0-100.0) fL MCH 30.1 (25.0-35.0) pg MCHC 34.4 (31.0-37.0) g/dL RDW 18.4 H (11.5-15.5) % Plt Count 91 L (150-450) k/uL Neutrophils % 80 % Lymphocytes % 10 % Monocytes % 7 % Eosinophils % 1 % Basophils % 0 % Neutrophils # 3.4 (1.3-7.7) k/uL Lymphocytes # 0.4 L (1.0-4.8) k/uL Monocytes # 0.3 (0-1.0) k/uL Eosinophils # 0.0 (0-0.7) k/uL Basophils # 0.0 (0-0.2) k/uL Manual Slide Review Performed Anisocytosis Slight Sodium 134 L (137-145) mmol/L Potassium 4.0 (3.5-5.1) mmol/L Chloride 104 (98-107) mmol/L Carbon Dioxide 20 L (22-30) mmol/L Anion Gap 10 mmol/L BUN 27 H (9-20) mg/dL Creatinine 0.67 (0.66-1.25) mg/dL Est GFR (CKD-EPI)AfAm >90 (>60 ml/min/1.73 sqM) Est GFR (CKD-EPI)NonAf 90 (>60 ml/min/1.73 sqM) Glucose 131 H (74-99) mg/dL Calcium 8.6 (8.4-10.2) mg/dL Total Bilirubin 1.4 H (0.2-1.3) mg/dL AST 111 H (17-59) U/L ALT 65 (21-72) U/L Alkaline Phosphatase 133 H (38-126) U/L Total Protein 6.4 (6.3-8.2) g/dL Albumin 3.1 L (3.5-5.0) g/dL Amylase 57 (30-110) U/L Lipase 206 (23-300) U/L Disposition Clinical Impression: Gastroenteritis, Dehydration, Excoriation of buttock Disposition: HOME SELF-CARE Condition: Good Instructions (If sedation given, give patient instructions): Gastroenteritis (ED) Prescriptions: Nystatin 1 applic TOPICAL BID #30 gm Is patient prescribed a controlled substance at d/c from ED?: No Referrals: Aguilar Alfredo MD [Primary Care Provider] - 1-2 days Time of Disposition: 10:43
[2019-01-29 09:42] LABS: ALT 65 U/L (21-72); AST 111 U/L (17-59); African American GFR (CKD) >90 (>60 ml/min/1.73 sqM); Albumin 3.1 g/dL (3.5-5.0); Alkaline Phosphatase 133 U/L (38-126); Amylase 57 U/L (30-110); Anion Gap 10 mmol/L; Blood Urea Nitrogen 27 mg/dL (9-20); Calcium 8.6 mg/dL (8.4-10.2); Carbon Dioxide 20 mmol/L (22-30); Chloride 104 mmol/L (98-107); Glucose 131 mg/dL (74-99); Sodium 134 mmol/L (137-145); Total Bilirubin 1.4 mg/dL (0.2-1.3); Total Protein 6.4 g/dL (6.3-8.2)
[2019-01-29 09:48] LABS: Anisocytosis Slight; Basophils % (A) 0 %; Eosinophils % (A) 1 %; HCT 35.2 % (39.0-53.0); HGB 12.1 gm/dL (13.0-17.5); Lymphocytes # (A) 0.4 k/uL (1.0-4.8); Lymphocytes % (A) 10 %; MCH 30.1 pg (25.0-35.0); MCHC 34.4 g/dL (31.0-37.0); MCV 87.3 fL (80.0-100.0); Mean Platelet Volume 7.2; Monocytes # (A) 0.3 k/uL (0-1.0); Monocytes % (A) 7 %; Neutrophils # (A) 3.4 k/uL (1.3-7.7); Neutrophils % (A) 80 %; RBC 4.03 m/uL (4.30-5.90); RDW 18.4 % (11.5-15.5); WBC 4.2 k/uL (3.8-10.6)
[2019-01-29 10:22] LABS: Platelet Count 91 k/uL (150-450)
[2019-01-29 10:34] VITALS: RESP 18
[2019-01-29] MEDS ORDERED: SODIUM CHLORIDE 0.9% 500 ML 500 ML IV ONE (10:40)
[2019-01-29 10:47] VITALS: BP 148/82; PULSE 86
[2019-01-29 11:07] VITALS: TEMP 97.9
== END 2019-01-29 11:07 | disposition home or self-care (01) ==
LOC: EC 08:12
DX: K52.9 Noninfective gastroenteritis and colitis, unspecified (principal); E86.0 Dehydration; S30.810A Abrasion of lower back and pelvis, initial encounter; C79.51 Secondary malignant neoplasm of bone; I25.119 Atherosclerotic heart disease of native coronary artery with unspecified angina pectoris; E11.9 Type 2 diabetes mellitus without complications; E78.5 Hyperlipidemia, unspecified; I10 Essential (primary) hypertension; Z87.891 Personal history of nicotine dependence; Z88.5 Allergy status to narcotic agent; Z79.82 Long term (current) use of aspirin; Z79.84 Long term (current) use of oral hypoglycemic drugs; Z79.899 Other long term (current) drug therapy; Z85.05 Personal history of malignant neoplasm of liver; Z87.39 Personal history of other diseases of the musculoskeletal system and connective tissue; Z90.49 Acquired absence of other specified parts of digestive tract; Z95.5 Presence of coronary angioplasty implant and graft; Z92.21 Personal history of antineoplastic chemotherapy; Z92.3 Personal history of irradiation; X58.XXXA Exposure to other specified factors, initial encounter
CPT/HCPCS: 36415; 80053; 82150; 83690; 85025; 99284; 96374; 96361 ×2; J2405